=== PATIENT | female | born 1940 | race Caucasian/White ===

== ENCOUNTER 2017-06-10 06:34 | Emergency (ER) | payer OTHER ==
[2017-06-10 07:01] LABS: Urine Blood NEGATIVE (NEG); Urine Glucose TRACE (NEG); Urine Protein 1+ (NEG); Urine Specific Gravity <1.005 (1.005-1.030)
[2017-06-10] MEDS ORDERED: NITROFURAN MACRO 100 MG CAP PO ONE (07:23)
[2017-06-10 07:34] LABS: Urine Bacteria <20 /HPF (<20); Urine Culture Reflex Order NOT NEEDED; Urine RBC <5 /HPF (NONE SEEN)
--- NOTE | 2017-06-10 07:37 | EDPHYS ---
Physician Documentation [facility] Name: Violette Owens Age: 76 yrs Sex: Female : 1940 Arrival Date: 06/10/2017 Time: 06:42 Bed 8 Private MD: ED Physician Gigi Eubanks HPI: 06/10 06:54 This 76 yrs old Female presents to ER via Unassigned with complaints of kb Urinary Problem. 06:54 The patient presents with urinary symptoms, dysuria. Onset: The symptoms/episode kb began/occurred 6 day(s) ago. Modifying factors: The symptoms are alleviated by nothing, the symptoms are aggravated by urinating. Associated signs and symptoms: Pertinent positives: dysuria, Pertinent negatives: constipation, cramping, diarrhea, dyspareunia, fever, hematuria, nausea, urinary frequency, vaginal bleeding, vaginal discharge, vomiting. Severity of symptoms: At their worst the symptoms were mild, moderate, in the emergency department the symptoms are unchanged. The patient has not experienced similar symptoms in the past. The patient has been recently seen at an urgent care, last week, for similar complaints, labs were performed, was given a prescription for antibiotics. Pt states she started having burning with urination on Sunday, went to urgent care on and given Cipro. Received a call yesterday saying the culture was inconclusive so just continue the cipro. Pt reports the cipro was causing decreased appetite and nausea so the person at urgent care told her to just stop it because of the symptoms, but did not give anything else. . Historical: - Allergies: 06:57 No Known Allergies; ak1 - Home Meds: 06:57 Chlorthalidone Oral [Active]; carvedilol oral oral [Active]; Allopurinol Oral [Active]; ak1 Lipitor Oral [Active]; Ambien Oral [Active]; candesartan cilexetil [Active]; Medrol Oral [Active]; - PMHx: 06:57 Hyperlipidemia; Hypertension; ak1 - PSHx: 06:57 Cholecystectomy; Appendectomy; ; Hysterectomy; ak1 - Immunization history:: Adult Immunizations unknown. - Social history:: Smoking status: Patient/guardian denies using tobacco. ROS: 06:54 Constitutional: Negative for fever, chills, and weight loss, Cardiovascular: Negative kb for chest pain, palpitations, and edema, Respiratory: Negative for shortness of breath, cough, wheezing, and pleuritic chest pain, Abdomen/GI: Negative for abdominal pain, nausea, vomiting, diarrhea, and constipation, Back: Negative for injury and pain, MS/Extremity: Negative for injury and deformity, Skin: Negative for injury, rash, and discoloration, Neuro: Negative for headache, weakness, numbness, tingling, and seizure. 06:54 : Positive for urinary symptoms, burning with urination. Exam: 06:54 Constitutional: This is a well developed, well nourished patient who is awake, alert, kb and in no acute distress. Head/Face: Normocephalic, atraumatic. Chest/axilla: Normal chest wall appearance and motion. Nontender with no deformity. No lesions are appreciated. Cardiovascular: Regular rate and rhythm with a normal S1 and S2. No gallops, murmurs, or rubs. Normal PMI, no JVD. No pulse deficits. Respiratory: Lungs have equal breath sounds bilaterally, clear to auscultation and percussion. No rales, rhonchi or wheezes noted. No increased work of breathing, no retractions or nasal flaring. Abdomen/GI: Soft, non-tender, with normal bowel sounds. No distension or tympany. No guarding or rebound. No evidence of tenderness throughout. Skin: Warm, dry with normal turgor. Normal color with no rashes, no lesions, and no evidence of cellulitis. MS/ Extremity: Pulses equal, no cyanosis. Neurovascular intact. Full, normal range of motion. Neuro: Awake and alert, GCS 15, oriented to person, place, time, and situation. Cranial nerves II-XII grossly intact. Motor strength 5/5 in all extremities. Sensory grossly intact. Cerebellar exam normal. Normal gait. Vital Signs: 06:53 BP 190 / 72; Pulse 97; Resp 20; Temp 98.3; Pulse Ox 94% on R/A; Weight 46.72 kg (R); ak1 Height 62 in. (157.48 cm) (R); Pain 6/10; 07:51 BP 175 / 74; Pulse 88; Resp 18; Pulse Ox 96% on R/A; sv 06:53 Body Mass Index 18.84 (46.72 kg, 157.48 cm) ak1 MDM: 06:49 Patient medically screened. kb 06:54 Data reviewed: vital signs, nurses notes. Data interpreted: Pulse oximetry: on room air kb is 94 %. Interpretation: normal. 07:01 Counseling: I had a detailed discussion with the patient and/or guardian regarding: the kb historical points, exam findings, and any diagnostic results supporting the discharge/admit diagnosis, lab results, the need for outpatient follow up, a family practitioner, to return to the emergency department if symptoms worsen or persist or if there are any questions or concerns that arise at home. 06/10 06:53 Order name: Urine Culture 06/10 06:53 Order name: Urine Microscopic Only 06/10 06:56 Order name: Urine Dipstick--Ancillary (enter results) 06/10 06:56 Order name: Urine Culture 06/10 06:56 Order name: Urine Microscopic Only 06/10 07:02 Order name: Urine Dipstick-Ancillary; Complete Time: 07:02 EDMS 06/10 06:53 Order name: Urine Dipstick-Ancillary (obtain specimen); Complete Time: 06:56 kb 06/10 06:56 Order name: Urine Dipstick-Ancillary (obtain specimen); Complete Time: 06:56 06/10 07:34 Order name: Urine Microscopic Only; Complete Time: 07:36 EDMS 06/10 07:36 Order name: Urine Culture EDUT Administered Medications: 07:06 Drug: Macrobid 100 mg Route: PO; sg 07:35 Follow up: Response: No adverse reaction sv Disposition: 19:29 Co-signature as Attending Physician, Gigi Eubanks MD. Disposition: 06/10/17 07:37 Discharged to Home. Impression: Urinary tract infection, site not specified. - Condition is Stable. - Discharge Instructions: Urinary Tract Infection, [id number]. - Prescriptions for Macrobid 100 mg Oral Capsule - take 1 capsule by ORAL route every 12 hours for 7 days; 14 capsule. - Medication Reconciliation Form, Thank You Letter, Antibiotic Education, Prescription Opioid Use form. - Follow up: Emergency Department; When: As needed; Reason: Worsening of condition. Follow up: Private Physician; When: 2 - 3 days; Reason: Recheck today's complaints, Continuance of care, Re-evaluation by your physician. Signatures: Dispatcher [place] Audrey Sharp, MAIL PROCESSOR-C MAIL PROCESSOR-Ckb Tequila Barajas, RN RN Luc Crews, RN RN Flores Padilla, RN RN Sophia Lugo RN RN ak1 Gigi Eubanks MD MD
--- NOTE | 2017-06-10 07:37 | ER ---
Nurse's Notes [facility] Name: Violette Owens Age: 76 yrs Sex: Female : 1940 Arrival Date: 06/10/2017 Time: 06:42 Bed 8 Private MD: Diagnosis: Urinary tract infection, site not specified Presentation: 06/10 06:53 Presenting complaint: Patient states: burning with urination since Sunday. pt seen at [facility] urgent care dx UTI started Cipro 500mg. pt received call from urgent care stating culture was inconclusive. pt asked about cipro making her nauseated. pt was instructed to stop taking cipro. pt taking AZO at this time and continues to have burning with urination. Transition of care: patient was not received from another setting of care. Onset of symptoms is unknown. Care prior to arrival: None. 06:53 Method Of Arrival: Ambulatory [facility] 06:53 Acuity: ORQUIDEA 4 ak Triage Assessment: 06:57 General: Appears in no apparent distress. Behavior is calm, cooperative. [facility] Historical: - Allergies: 06:57 No Known Allergies; ak1 - Home Meds: 06:57 Chlorthalidone Oral [Active]; carvedilol oral oral [Active]; Allopurinol Oral [Active]; ak1 Lipitor Oral [Active]; Ambien Oral [Active]; candesartan cilexetil [Active]; Medrol Oral [Active]; - PMHx: 06:57 Hyperlipidemia; Hypertension; ak1 - PSHx: 06:57 Cholecystectomy; Appendectomy; ; Hysterectomy; ak1 - Immunization history:: Adult Immunizations unknown. - Social history:: Smoking status: Patient/guardian denies using tobacco. Screenin:57 Abuse screen: Denies threats or abuse. Denies injuries from another. Nutritional ak1 screening: No deficits noted. Tuberculosis screening: No symptoms or risk factors identified. Fall Risk None identified. Assessment: 07:06 General: Appears in no apparent distress. uncomfortable, slender, Behavior is calm, sv cooperative, appropriate for age. Pain: Complains of pain in suprapubic area Pain currently is 6 out of 10 on a pain scale. Neuro: Level of Consciousness is awake, alert, obeys commands, Oriented to person, place, time, situation, Moves all extremities. Full function. Respiratory: Respiratory effort is even, unlabored, Respiratory pattern is regular, symmetrical. : Reports burning with urination. Derm: Skin is normal. Musculoskeletal: Range of motion: intact in all extremities. 07:52 Reassessment: Patient appears in no apparent distress at this time. No changes from sv previously documented assessment. Patient and/or family updated on plan of care and expected duration. Pain level reassessed. Patient is alert, oriented x 3, equal unlabored respirations, skin warm/dry/pink. Vital Signs: 06:53 BP 190 / 72; Pulse 97; Resp 20; Temp 98.3; Pulse Ox 94% on R/A; Weight 46.72 kg (R); ak1 Height 62 in. (157.48 cm) (R); Pain 6/10; 07:51 BP 175 / 74; Pulse 88; Resp 18; Pulse Ox 96% on R/A; sv 06:53 Body Mass Index 18.84 (46.72 kg, 157.48 cm) ak1 ED Course: 06:42 Patient arrived in ED. al2 06:49 Audrey Donovan FNP-C is PHCP. kb 06:49 Gigi Eubanks MD is Attending Physician. kb 06:55 Triage completed. ak1 06:57 Arm band placed on Patient placed in an exam room, on a stretcher, on pulse oximetry, ak1 Patient notified of wait time. 06:57 Patient has correct armband on for positive identification. Bed in low position. Call ak1 light in reach. Side rails up X 1. Adult w/ patient. Pulse ox on. NIBP on. 07:06 Luc Wood, JENELLE is Primary Nurse. sg 07:34 Urine Microscopic Only Sent. sv 07:34 Urine Culture Sent. sv 07:34 Urine Culture Sent. sv 07:34 Urine Microscopic Only Sent. sv 07:35 Urine Dipstick--Ancillary (enter results) Sent. sv 07:52 No provider procedures requiring assistance completed. Patient did not have IV access sv during this emergency room visit. Administered Medications: 07:06 Drug: Macrobid 100 mg Route: PO; sg 07:35 Follow up: Response: No adverse reaction sv Outcome: 07:37 Discharge ordered by . kb 07:52 Discharged to home ambulatory, with family. sv 07:52 Condition: stable 07:52 Discharge instructions given to patient, Instructed on discharge instructions, follow up and referral plans. medication usage, increase fluids Demonstrated understanding of instructions, follow-up care, medications, increase fluids Prescriptions given X 1. 07:54 Patient left the ED. sv Signatures: Audrey Donovan, AGRICULTURAL ECONOMIST-C AGRICULTURAL ECONOMIST-Tequila Mora RN RN sv Gay, Steven, RN RN sg Krenek, Amber, RN RN akLakeisha Marrufo
== END 2017-06-10 07:54 | disposition home or self-care (01) ==
LOC: ER 06:34
DX: N39.0 Urinary tract infection, site not specified (principal); I10 Essential (primary) hypertension; E78.5 Hyperlipidemia, unspecified
CPT/HCPCS: 81003; 81015; 87086; 87088; 99284

== ENCOUNTER 2017-06-13 16:27 | Inpatient (IN) | payer OTHER ==
[2017-06-13 18:12] LABS: Urine Blood TRACE (NEG); Urine Glucose NEGATIVE (NEG); Urine Protein NEGATIVE (NEG); Urine pH 5.5 (5.0-7.0)
[2017-06-13] MEDS ORDERED: ONDANSETRON 4 MG/2 ML VIAL ONE (18:19)
[2017-06-13] MEDS ORDERED: NA CHLORIDE 0.9% 1,000 ML ONE (18:21)
[2017-06-13 18:33] LABS: Absolute Lymphocytes (CBC) 1.7 K/uL (0.7-4.9); Absolute Monocytes 1.9 K/uL (0.1-1.3); Absolute Neutrophil 17.6 K/uL (1.8-8.0); Basophils % 0.1 % (0-1.3); Eosinophils % 0.3 % (0-4.4); Hematocrit 34.6 % (36.0-45.0); MCV 95.5 fL (80-100); Monocytes % 8.8 % (3.3-12.3); RBC Red Blood Cell Count 3.62 M/uL (3.86-4.86)
[2017-06-13 18:36] LABS: Urine Bacteria <20 /HPF (<20); Urine Culture Reflex Order REFLEXED; Urine Mucus NS /HPF (NONE SEEN); Urine RBC <5 /HPF (NONE SEEN)
[2017-06-13 18:42] LABS: Albumin 4.5 g/dL (3.2-5.5); Bilirubin Direct 0.1 mg/dL (0-0.2); Bilirubin Total 0.7 mg/dL (0.3-1.2); Protein, Total 6.8 g/dL (6.0-8.3)
[2017-06-13 19:11] LABS: Blood Morphology Comment NOT SEEN (NOT SEEN); Platelet Estimate ADEQ; Toxic Granulation 1+
--- NOTE | 2017-06-13 20:34 | RAD REPORT ---
EXAM DESCRIPTION: CT - Abdomen Pelvis Wo Contrast - 06/13/2017 8:22 pm CLINICAL HISTORY: Abdominal pain. Urinary tract infection. COMPARISON: None TECHNIQUE: CT imaging of the abdomen and pelvis was performed without contrast. Solid organ, bowel a nd vascular assessment is limited due to lack of IV and oral contrast. All CT scans are performed using dose optimization technique as appropriate and may include automated exposure control or mA/KV adjustment according to patient size. FINDINGS: Small vague subpleural opacities are present in the lung bases, incompletely assessed. A s mall hiatal hernia is noted. The liver, spleen, pancreas, adrenal glands and kidneys are within normal limits for a limited non-co ntrast examination.Cholecystectomy clips. No bowel obstruction, free air, free fluid or abscess. Appendectomy suspected. The osseous structures are within normal limits. IMPRESSION: No acute intra-abdominal or pelvic findings. A limited non-contrast examination was performed as detailed.
--- NOTE | 2017-06-13 20:53 | ER ---
Nurse's Notes [facility] Name: Violette Owens Age: 76 yrs Sex: Female : 1940 Arrival Date: 06/13/2017 Time: 16:30 Bed 16 Private MD: Diagnosis: Hypo-osmolality and hyponatremia;Urinary tract infection, site not specified;Dehydration;Acute kidney failure Presentation: 06/13 16:55 Presenting complaint: Patient states: my son brought me here and i was dx with UTI, was hj Rx with cipro, and was changed to another anticiotic because i was nauseous with that, called my PCP, was told to stop taking it and was Rx with Phenergan and Phenergan wasn't helping; had diarrhea last night x2; denies fever and chills;. Transition of care: patient was not received from another setting of care. Onset of symptoms was June 13, 2017. Care prior to arrival: None. 16:55 Method Of Arrival: Ambulatory hj 16:55 Acuity: ORQUIDEA 3 hj Triage Assessment: 17:00 General: Appears in no apparent distress. uncomfortable, Behavior is calm, cooperative, hj appropriate for age. Pain: Denies pain. GI: Reports nausea. Historical: - Allergies: 17:00 No Known Allergies; hj - Home Meds: 17:00 Allopurinol Oral [Active]; Ambien Oral [Active]; candesartan cilexetil [Active]; hj carvedilol Oral [Active]; Chlorthalidone Oral [Active]; Lipitor Oral [Active]; Medrol Oral [Active]; - PMHx: 17:00 Hyperlipidemia; Hypertension; hj - PSHx: 17:00 Cholecystectomy; Appendectomy; ; Hysterectomy; hj - Immunization history:: Adult Immunizations not up to date. - Family history:: not pertinent. - Social history:: Smoking status: Patient/guardian denies using tobacco. - History obtained from: daughter. Screenin:21 Abuse screen: Denies threats or abuse. Denies injuries from another. Nutritional aj1 screening: No deficits noted. Tuberculosis screening: No symptoms or risk factors identified. 22:05 Fall Risk None identified. aj1 Assessment: 17:01 GI: Abdomen is flat, non-distended. hj 17:30 General: Appears in no apparent distress. uncomfortable, Behavior is calm, cooperative, aj1 appropriate for age. Pain: Denies pain. Neuro: Level of Consciousness is awake, alert, obeys commands, Oriented to person, place, time, situation, Speech is normal, Facial symmetry appears normal. Cardiovascular: Patient's skin is warm and dry. Respiratory: Airway is patent Respiratory effort is even, unlabored, Respiratory pattern is regular, symmetrical. GI: Abdomen is flat, non-distended, Bowel sounds present X 4 quads. Abd is soft and non tender X 4 quads. Reports nausea, Patient currently denies diarrhea, vomiting. : No signs and/or symptoms were reported regarding the genitourinary system. EENT: No signs and/or symptoms were reported regarding the EENT system. Derm: No signs and/or symptoms reported regarding the dermatologic system. Skin is pink, warm \T\ dry. normal. Musculoskeletal: No signs and/or symptoms reported regarding the musculoskeletal system. Circulation, motion, and sensation intact. 18:24 Reassessment: Patient appears in no apparent distress at this time. No changes from aj1 previously documented assessment. Patient and/or family updated on plan of care and expected duration. Pain level reassessed. Patient is alert, oriented x 3, equal unlabored respirations, skin warm/dry/pink. 19:30 Reassessment: Patient appears in no apparent distress at this time. No changes from aj1 previously documented assessment. Patient and/or family updated on plan of care and expected duration. Pain level reassessed. Patient is alert, oriented x 3, equal unlabored respirations, skin warm/dry/pink. 20:43 Reassessment: Patient and/or family updated on plan of care and expected duration. Pain aj1 level reassessed. General: Appears in no apparent distress. uncomfortable, Behavior is calm, cooperative, appropriate for age. Pain: Denies pain. Neuro: Level of Consciousness is awake, alert, obeys commands, Oriented to person, place, time, situation, Speech is normal, Facial symmetry appears normal. Cardiovascular: Patient's skin is warm and dry. Respiratory: Airway is patent Respiratory effort is even, unlabored, Respiratory pattern is regular, symmetrical. GI: Abdomen is flat, non-distended, Reports nausea. : No signs and/or symptoms were reported regarding the genitourinary system. EENT: No signs and/or symptoms were reported regarding the EENT system. Derm: Skin is pink, warm \T\ dry. normal. Musculoskeletal: Circulation, motion, and sensation intact. 21:19 Reassessment: Patient appears in no apparent distress at this time. No changes from aj1 previously documented assessment. Patient and/or family updated on plan of care and expected duration. Pain level reassessed. Patient is alert, oriented x 3, equal unlabored respirations, skin warm/dry/pink. 22:12 Reassessment: Patient appears in no apparent distress at this time. No changes from aj1 previously documented assessment. Patient and/or family updated on plan of care and expected duration. Pain level reassessed. Patient is alert, oriented x 3, equal unlabored respirations, skin warm/dry/pink. Vital Signs: 17:01 BP 177 / 69; Pulse 88; Resp 18; Temp 98.1(O); Pulse Ox 100% on R/A; Weight 47.63 kg; hj Height 5 ft. 2 in. (157.48 cm); Pain 0/10; 18:21 BP 187 / 70; Pulse 74; Resp 18; Pulse Ox 96% on R/A; aj1 19:45 BP 193 / 68; Pulse 87; Resp 18; Pulse Ox 96% on R/A; mt 20:34 BP 228 / 66; Pulse 87; Resp 16; Pulse Ox 98% on R/A; mt 21:19 BP 177 / 61; Pulse 81; Resp 18; Pulse Ox 95% ; aj1 22:12 BP 148 / 99; Pulse 79; Resp 18; Pulse Ox 99% ; aj1 17:01 Body Mass Index 19.21 (47.63 kg, 157.48 cm) ED Course: 16:30 Patient arrived in ED. mr 16:59 Triage completed. hj 17:01 Arm band placed on left wrist. hj 17:24 Oxana Castle, JENELLE is Primary Nurse. aj1 17:55 Nu Caceres FNP is PHCP. kav 17:55 Fernando Seals MD is Attending Physician. kav 18:15 No provider procedures requiring assistance completed. Initial lab(s) drawn, by wy, aj1 sent to lab. Inserted saline lock: 20 gauge in left antecubital area, using aseptic technique. Blood collected. 18:21 Patient has correct armband on for positive identification. aj1 20:51 Divinski, Ianir, MD is Hospitalizing Provider. kav 22:12 Patient admitted, IV remains in place. aj1 Administered Medications: 18:19 Drug: Zofran 4 mg Route: IVP; Site: left antecubital; aj1 22:14 Follow up: Response: No adverse reaction aj 18:20 Drug: NS 0.9% 1000 ml Route: IV; Rate: 75 ml/hr; Site: left antecubital; aj1 22:14 Follow up: IV Status: Infusion continued upon admission aj Outcome: 20:53 Decision to Hospitalize by Provider. kav 22:13 Admitted to Med/surg accompanied by tech, via wheelchair, with chart, Report called to faviola Whiting RN on 2nd floor 22:13 Condition: stable 22:13 Discharge instructions given to patient, family, Instructed on the need for admit, Demonstrated understanding of instructions, follow-up care. 22:15 Patient left the ED. aa1 Signatures: Oxana Castle RN RN aj Anamaria Ramsey RN RN aa1 Nu Caceres, WOOD TYPE FINISHER WOOD TYPE FINISHER Pamela España Henry RN RN [facility] Corrections: (The following items were deleted from the chart) 17:02 17:01 Pulse 88bpm; Resp 18bpm; Pulse Ox 100% RA; Temp 98.1F Oral; 47.63 kg; Height 5 hj ft. 2 in.; BMI: 19.2; Pain 0/10; hj 18:24 18:21 General: Appears in no apparent distress. uncomfortable, Behavior is calm, aj1 cooperative, appropriate for age, aj :24 18:21 Pain: Denies pain. aj1 aj :24 18:21 Neuro: Level of Consciousness is awake, alert, obeys commands, Oriented to aj1 person, place, time, situation, Speech is normal, Facial symmetry appears normal, [facility] : 18:21 Cardiovascular: Patient's skin is warm and dry. aj1 aj 18:24 18:21 Respiratory: Airway is patent Respiratory effort is even, unlabored, Respiratory aj pattern is regular, symmetrical, [facility] : 18:21 GI: Abdomen is flat, non-distended, Bowel sounds present X 4 quads. Abd is soft aj1 and non tender X 4 quads. Reports nausea, Patient currently denies diarrhea, vomiting, aj1 :24 18:21 : No signs and/or symptoms were reported regarding the genitourinary system. aj1aj1 18:24 18:21 EENT: No signs and/or symptoms were reported regarding the EENT system. aj1 aj1 18:24 18:21 Derm: No signs and/or symptoms reported regarding the dermatologic system. Skin aj1 is pink, warm \T\ dry. normal, aj1 18:24 18:21 Musculoskeletal: No signs and/or symptoms reported regarding the musculoskeletal aj1 system. Circulation, motion, and sensation intact. aj1 23:04 23:02 Patient left the ED. aa1 aa1
--- NOTE | 2017-06-13 20:54 | EDPHYS ---
Physician Documentation [facility] Name: Violette Owens Age: 76 yrs Sex: Female : 1940 Arrival Date: 06/13/2017 Time: 16:30 Bed 16 Private MD: ED Physician Fernando Seals HPI: 06/13 20:43 This 76 yrs old Female presents to ER via Ambulatory with complaints of kav Nausea. 20:43 The patient presents to the emergency department with nausea, that is moderate. Onset: kav The symptoms/episode began/occurred acutely, 1 week(s) ago, and became worse this morning. Possible causes: antibiotics, uti. The symptoms are aggravated by nothing. The symptoms are alleviated by nothing. Associated signs and symptoms: Pertinent positives: nausea. Severity of symptoms: At their worst the symptoms were moderate just prior to arrival. The patient has experienced a previous episode, approximately 1 weeks ago. The patient has been recently seen by a physician: The patient has been recently seen at the [facility] Emergency Department, last week. patient reports being treated by urgent care for a uti approx 2 weeks ago and give rx: cipro which made her sick to her stomach. she was seen at [facility] ed on 06/10/17 for uti and was taken off of the cipro and placed on macrobid. she reports that the macrobid made her sick and nauseated. she called her pcp/dr. jeff who advised to stop the macrobid and called her in a rx: phenergan. patient presents to the er with chief c/o of nausea. Historical: - Allergies: 17:00 No Known Allergies; - Home Meds: 17:00 Allopurinol Oral [Active]; Ambien Oral [Active]; candesartan cilexetil [Active]; hj carvedilol Oral [Active]; Chlorthalidone Oral [Active]; Lipitor Oral [Active]; Medrol Oral [Active]; - PMHx: 17:00 Hyperlipidemia; Hypertension; hj - PSHx: 17:00 Cholecystectomy; Appendectomy; ; Hysterectomy; hj - Immunization history:: Adult Immunizations not up to date. - Family history:: not pertinent. - Social history:: Smoking status: Patient/guardian denies using tobacco. - History obtained from: daughter. ROS: 20:48 Constitutional: Negative for fever, chills, and weight loss, Eyes: Negative for injury, kav pain, redness, and discharge, ENT: Negative for injury, pain, and discharge, Neck: Negative for injury, pain, and swelling, Cardiovascular: Negative for chest pain, palpitations, and edema, Respiratory: Negative for shortness of breath, cough, wheezing, and pleuritic chest pain, Back: Negative for injury and pain, : Negative for injury, bleeding, discharge, and swelling, MS/Extremity: Negative for injury and deformity, Skin: Negative for injury, rash, and discoloration, Neuro: Negative for headache, weakness, numbness, tingling, and seizure, Psych: Negative for depression, anxiety, suicide ideation, homicidal ideation, and hallucinations, Allergy/Immunology: Negative for hives, rash, and allergies, Endocrine: Negative for neck swelling, polydipsia, polyuria, polyphagia, and marked weight changes, Hematologic/Lymphatic: Negative for swollen nodes, abnormal bleeding, and unusual bruising. 20:48 Abdomen/GI: Positive for nausea, Negative for vomiting, diarrhea, abdominal cramps, abdominal distension, hematemesis, black/tarry stool, rectal bleeding. Exam: 20:48 Constitutional: This is a well developed, well nourished patient who is awake, alert, kav and in no acute distress. Head/Face: Normocephalic, atraumatic. Eyes: Pupils equal round and reactive to light, extra-ocular motions intact. Lids and lashes normal. Conjunctiva and sclera are non-icteric and not injected. Cornea within normal limits. Periorbital areas with no swelling, redness, or edema. ENT: Nares patent. No nasal discharge, no septal abnormalities noted. Tympanic membranes are normal and external auditory canals are clear. Oropharynx with no redness, swelling, or masses, exudates, or evidence of obstruction, uvula midline. Mucous membranes moist. Neck: Trachea midline, no thyromegaly or masses palpated, and no cervical lymphadenopathy. Supple, full range of motion without nuchal rigidity, or vertebral point tenderness. No Meningismus. Chest/axilla: Normal chest wall appearance and motion. Nontender with no deformity. No lesions are appreciated. Cardiovascular: Regular rate and rhythm with a normal S1 and S2. No gallops, murmurs, or rubs. Normal PMI, no JVD. No pulse deficits. Respiratory: Lungs have equal breath sounds bilaterally, clear to auscultation and percussion. No rales, rhonchi or wheezes noted. No increased work of breathing, no retractions or nasal flaring. Back: No spinal tenderness. No costovertebral tenderness. Full range of motion. Skin: Warm, dry with normal turgor. Normal color with no rashes, no lesions, and no evidence of cellulitis. MS/ Extremity: Pulses equal, no cyanosis. Neurovascular intact. Full, normal range of motion. Neuro: Awake and alert, GCS 15, oriented to person, place, time, and situation. Cranial nerves II-XII grossly intact. Motor strength 5/5 in all extremities. Sensory grossly intact. Cerebellar exam normal. Normal gait. Psych: Awake, alert, with orientation to person, place and time. Behavior, mood, and affect are within normal limits. 20:48 Abdomen/GI: Inspection: abdomen appears normal, Bowel sounds: normal, Palpation: abdomen is soft and non-tender, in all quadrants. Vital Signs: 17:01 BP 177 / 69; Pulse 88; Resp 18; Temp 98.1(O); Pulse Ox 100% on R/A; Weight 47.63 kg; hj Height 5 ft. 2 in. (157.48 cm); Pain 0/10; 18:21 BP 187 / 70; Pulse 74; Resp 18; Pulse Ox 96% on R/A; aj1 19:45 BP 193 / 68; Pulse 87; Resp 18; Pulse Ox 96% on R/A; mt 20:34 BP 228 / 66; Pulse 87; Resp 16; Pulse Ox 98% on R/A; mt 21:19 BP 177 / 61; Pulse 81; Resp 18; Pulse Ox 95% ; aj1 22:12 BP 148 / 99; Pulse 79; Resp 18; Pulse Ox 99% ; aj1 17:01 Body Mass Index 19.21 (47.63 kg, 157.48 cm) MDM: 17:55 Patient medically screened. [facility] 20:48 Data reviewed: vital signs, nurses notes, lab test result(s), radiologic studies. [facility] 06/13 17:57 Order name: Amylase, Serum [facility] 06/13 17:57 Order name: Basic Metabolic Panel [facility] 06/13 17:57 Order name: CBC with Diff [facility] 06/13 17:57 Order name: Creatinine for Radiology 06/13 17:57 Order name: Hepatic Function 06/13 17:57 Order name: Lipase [facility] 06/13 17:57 Order name: Urine Microscopic Only [facility] 06/13 18:04 Order name: Urine Dipstick--Ancillary (enter results) ms 06/13 18:12 Order name: Urine Dipstick-Ancillary; Complete Time: 19:31 EDME 06/13 19:31 Interpretation: Normal except: UBLD TRACE; UESTR TRACE. [facility] 06/13 18:35 Order name: Creatinine (Radiology Only); Complete Time: 19:31 EDME 06/13 19:31 Interpretation: Normal except: CRE 1.15; GFR 46. [facility] 06/13 18:36 Order name: Basic Metabolic Panel; Complete Time: 19:31 EDME 06/13 19:32 Interpretation: Normal except: NA 122; CL 89; GLUC 135; BUN 36; CRE 1.14; GFR 47. [facility] 06/13 18:36 Order name: Lipase; Complete Time: 19:32 EDME 06/13 19:32 Interpretation: Normal except: LIP 66. [facility] 06/13 18:36 Order name: CBC with Automated Diff; Complete Time: 19:32 EDME 06/13 19:34 Interpretation: Normal except: WBC 21.3; RBC 3.62; HGB 11.6; ALMAZ% 82.8; LYM% 8.0; NEUT kav A 17.6; MNA 1.9; HCT 34.6. 06/13 18:36 Order name: Urine Microscopic Only; Complete Time: 19:32 EDMS 06/13 19:32 Interpretation: Normal except: UWBC 5-10; SQEPI 5-10. [facility] 06/13 17:57 Order name: IV Saline Lock; Complete Time: 18:20 06/13 17:57 Order name: Labs collected and sent; Complete Time: 18:20 06/13 17:57 Order name: Urine Dipstick-Ancillary (obtain specimen); Complete Time: 18:20 [facility] 06/13 18:43 Order name: Liver (Hepatic) Function; Complete Time: 19:32 EDME 06/13 19:32 Interpretation: Normal except: A/G 2.0. 06/13 18:43 Order name: Amylase Level; Complete Time: 19:32 EDMS 06/13 19:32 Interpretation: Normal except: LOUISE 190. kav 06/13 19:11 Order name: Manual Differential; Complete Time: 19:30 EDMS 06/13 19:30 Interpretation: Normal except: SEGS 83; LYM 8. kav 06/13 19:48 Order name: CT Abd/Pelvis - Without Cont kav 06/13 20:35 Order name: CT; Complete Time: 20:53 EDMS 06/13 20:54 Interpretation: No acute disease. kav Administered Medications: 18:19 Drug: Zofran 4 mg Route: IVP; Site: left antecubital; aj1 22:14 Follow up: Response: No adverse reaction [facility] 18:20 Drug: NS 0.9% 1000 ml Route: IV; Rate: 75 ml/hr; Site: left antecubital; aj1 22:14 Follow up: IV Status: Infusion continued upon admission aj1 Disposition: 06/14 07:18 Co-signature as Attending Physician, Fernando Seals MD I agree with the assessment and kdr plan of care. Disposition: 06/13/17 20:53 Hospitalization ordered by Gracia Francis for Inpatient Admission. Preliminary diagnosis are Hypo-osmolality and hyponatremia, Urinary tract infection, site not specified, Dehydration, Acute kidney failure. - Bed requested for Telemetry/MedSurg (Inpatient). - Status is Inpatient Admission. aa1 - Condition is Fair. - Problem is new. - Symptoms have improved. UTI on Admission? Yes Signatures: Dispatcher [employer] [facility] Oxana Castle RN RN aj1 Reina Hernandez RN RN kl Kern, Alissa, RN RN aa1 Fernando Seals MD MD kdr Vern, Katherine, TIRE BUILDER TIRE BUILDER [facility] Hilario Crews RN RN Corrections: (The following items were deleted from the chart) 06/13 19:32 19:31 Normal except: NA 122; CL 89; GLUC 135; BUN 36; CRE 1.14. kav kav 19:33 19:32 Normal except: WBC 21.3; RBC 3.62; HGB 11.6; HCT 34.6. kav kav 19:34 19:33 Normal except: WBC 21.3; RBC 3.62; HGB 11.6; ALMAZ% 82.8; LYM% 8.0; NEUT A 17.6; kav MNA 1.9. kav
--- NOTE | 2017-06-13 21:53 | P.HP ---
Certification for Inpatient Patient admitted to: Observation With expected LOS: <2 Midnights Practitioner: I am a practitioner with admitting privileges, knowledge of patient current condition, hospital course, and medical plan of care. Services: Services provided to patient in accordance with Admission requirements found in Title 42 Section 412.3 of the Code of Federal Regulations Patient History Date of Service: 06/13/17 Reason for admission: UTI, volume depletion History of Present Illness: Ms Owens is a 76 years old woman with history of HTN and hyperlipidemia, who start about 2 weeks ago with generalized weakness associated with nausea. She was diagnosed with a UTI, prescribed initially Cipro, however the patient did not tolerate it due to nausea and she quit taking it before finish her treatment. Then her PCP change antibiotic for Macrobid, however, still had nausea and it was discontinued after 2 days. The patient came to ED today because her weakness and nausea are getting worse. She denied any fever or chills. In ED lab work remarkable for leukocytosis, 21.3K, hyponatremia 122, mild elevated creatinine 1.14. UA still abnormal consistent with UTI. Abd/ pelvis CT scan is unremarkable. Allergies No Known Aller Allergy (Uncoded 06/10/17 07:57) Unknown - Past Medical/Surgical History -: hyperlypidemia -: HTN -: Cholecystectomy; Appendectomy; ; Hysterectomy - Family History Family History: Reviewed- Non-Contributory - Social History Smoking Status: Never smoker CD- Drugs: No Place of Residence: Home Review of Systems 10-point ROS is otherwise unremarkable Physical Examination - Physical Exam General: Alert, In no apparent distress HEENT: Atraumatic, PERRLA, Other (mucous membr. dry), EOMI, Sclerae nonicteric Neck: Supple, 2+ carotid pulse no bruit, No LAD, Without JVD or thyroid abnormality Respiratory: Clear to auscultation bilaterally, Normal air movement Cardiovascular: Regular rate/rhythm, Normal S1 S2 Gastrointestinal: Normal bowel sounds, No tenderness Musculoskeletal: No tenderness Integumentary: No rashes Neurological: Normal speech, Normal strength at 5/5 x4 extr, Normal tone, Normal affect Lymphatics: No axilla or inguinal lymphadenopathy - Studies Laboratory Data (last 24 hrs) 06/13/17 17:50: Creatinine 1.15 H 06/13/17 17:50: WBC 21.3 H*, Hgb 11.6 L, Hct 34.6 L, Plt Count 338 06/13/17 17:50: Sodium 122 L, Potassium 4.0, BUN 36 H, Creatinine 1.14 H, Glucose 135 H, Total Bilirubin 0.7, AST 22, ALT 25, Alkaline Phosphatase 61, Amylase 190 H, Lipase 66 H Assessment and Plan - Problems (Diagnosis) (1) UTI (urinary tract infection) Current Visit: Yes Status: Acute Qualifiers: Urinary tract infection type: acute cystitis Hematuria presence: without hematuria Qualified Code(s): N30.00 - Acute cystitis without hematuria (2) Hyponatremia Current Visit: Yes Status: Acute (3) Acute renal injury Current Visit: Yes Status: Acute - Plan Ms Owens will be admitted to the hospital due to failure to treat UTI as outpatient, hyponatremia, acute renal injury and volume depletion. Will continue with IV normal saline, IV Levaquin and symptomatic medication for nausea. Previous urine culture were non-conclusive. - Advance Directives Does patient have a Living Will: No Does patient have a Durable POA for Healthcare: No - Code Status/Comfort Care Code Status Assessed: Yes Code Status: Full Code
[2017-06-13] MEDS ORDERED: ACETAMINOPHEN 500 MG TAB PO PRN (22:12)
[2017-06-13] MEDS ORDERED: Levofloxacin500mg IV 500 MG/100 ML BAG IV ONE ×2 (22:12→23:00)
[2017-06-13] MEDS: NA CHLORIDE 0.9% 1,000 ML IV SCH (22:40)
[2017-06-13] MEDS ORDERED: HYDRALAZINE HCL 20 MG/ML VIAL IV PRN (23:13)
[2017-06-14 05:22] LABS: Absolute Lymphocytes (CBC) 1.7 K/uL (0.7-4.9); Absolute Neutrophil 14.1 K/uL (1.8-8.0); Basophils % 0.1 % (0-1.3); Eosinophils % 0.4 % (0-4.4); Hematocrit 30.3 % (36.0-45.0); Lymphocytes % 9.6 % (15.3-44.8); MCH 31.7 pg (27.0-35.0); MCV 93.8 fL (80-100); MPV 8.1 fL (7.6-11.3); Monocytes % 11.3 % (3.3-12.3); RBC Red Blood Cell Count 3.23 M/uL (3.86-4.86)
[2017-06-14 05:45] LABS: Potassium 4.2 mEq/L (3.6-5.0)
[2017-06-14] MEDS ORDERED: INFLUENZA VACCINE (for 5y+) 0.5 ML DOSE IMVAC ONE (08:00)
[2017-06-14] MEDS ORDERED: CARVEDILOL 12.5 MG TAB PO SCH (09:00)
[2017-06-14] MEDS ORDERED: CARVEDILOL 25 MG TAB PO SCH (09:00)
[2017-06-14] MEDS: NA CHLORIDE 0.9% 1,000 ML IV SCH (09:00)
[2017-06-14] MEDS ORDERED: ENOXAPARIN 40 MG/0.4 ML SQ SCH (09:00)
[2017-06-14 15:46] LABS: Absolute Lymphocytes (CBC) 1.8 K/uL (0.7-4.9); Absolute Monocytes 1.7 K/uL (0.1-1.3); Absolute Neutrophil 11.4 K/uL (1.8-8.0); Basophils % 0.1 % (0-1.3); Eosinophils % 0.1 % (0-4.4); Hematocrit 29.4 % (36.0-45.0); Lymphocytes % 11.8 % (15.3-44.8); MCH 31.6 pg (27.0-35.0); MCV 95.5 fL (80-100); Monocytes % 11.6 % (3.3-12.3); RBC Red Blood Cell Count 3.08 M/uL (3.86-4.86)
[2017-06-14 16:08] LABS: Potassium 4.4 mEq/L (3.6-5.0)
--- NOTE | 2017-06-14 16:08 | P.PN ---
Subjective Date of Service: 06/14/17 Chief Complaint: UTI, volume depletion Subjective: Improving (Patient doing well this time. Patient desires to go home.) Physical Examination - Vital Signs Temperature: 97.6 F Blood Pressure: 148/64 Pulse: 82 Respirations: 18 Pulse Ox (%): 94 - Physical Exam General: Alert, In no apparent distress, Oriented x3, Cooperative HEENT: Atraumatic Neck: Supple, No Thyromegaly Respiratory: Clear to auscultation bilaterally, Normal air movement Cardiovascular: Normal pulses, Regular rate/rhythm Gastrointestinal: Normal bowel sounds, Soft and benign, Non-distended, No tenderness, No masses, No rebound, No guarding Musculoskeletal: No erythema, No tenderness, No warmth Integumentary: No tenderness/swelling, No erythema, No warmth, No cyanosis Neurological: Normal speech, Normal strength at 5/5 x4 extr, Normal tone, Normal affect - Studies Laboratory Data (last 24 hrs) 06/13/17 17:50: Creatinine 1.15 H 06/13/17 17:50: WBC 21.3 H*, Hgb 11.6 L, Hct 34.6 L, Plt Count 338 06/13/17 17:50: Sodium 122 L, Potassium 4.0, BUN 36 H, Creatinine 1.14 H, Glucose 135 H, Total Bilirubin 0.7, AST 22, ALT 25, Alkaline Phosphatase 61, Amylase 190 H, Lipase 66 H Medications List Reviewed: Yes Assessment & Plan - Problems (Diagnosis) (1) Hypertension Current Visit: Yes Status: Chronic Plan: Will continue carvedilol. Will hold chlorthalidone and Arb inhibitor. At discharge chlorthalidone likely will need to be discontinued. Will reassess. Qualifiers: Hypertension type: essential hypertension Qualified Code(s): I10 - Essential (primary) hypertension (2) Anemia Current Visit: Yes Status: Chronic Plan: Etiology unknown. This can be further assessed as an outpatient. Patient is getting IV fluids. Patient may require GI evaluation as an outpatient. No rectal bleeding noted. No melena noted. Qualifiers: Anemia type: unspecified type Qualified Code(s): D64.9 - Anemia, unspecified (3) UTI (urinary tract infection) Onset Date: 06/14/17 Current Visit: Yes Status: Acute Plan: Patient recently treated with Cipro and Macrobid. Patient with elevated white count. She has no symptoms at this time. Patient desires to go home. Will recheck lab later today. Will consider discharge. Urine culture obtained. Will reassess later today. Qualifiers: Urinary tract infection type: acute cystitis Hematuria presence: without hematuria Qualified Code(s): N30.00 - Acute cystitis without hematuria (4) Hyponatremia Onset Date: 06/14/17 Current Visit: Yes Status: Acute Plan: This is likely from dehydration. This has improved. Will continue to monitor closely. (5) Acute renal injury Onset Date: 06/14/17 Current Visit: Yes Status: Acute Plan: Continue with above plan of care. Will continue to monitor electrolytes. Will continue with IV fluids. Discharge Plan: Home Plan to discharge in: 24 Hours Time Spent Managing Pts Care (In Minutes): 55
--- NOTE | 2017-06-14 18:32 | P.DS ---
Admission Date: 06/13/17 Discharge Date: 06/14/17 Primary Care Provider: Dr. Sofia Disposition: ROUTINE DISCHARGE Discharge Condition: GOOD Reason for Admission: UTI, volume depletion - Problems (1) Hypertension Status: Chronic Qualifiers: Hypertension type: essential hypertension Qualified Code(s): I10 - Essential (primary) hypertension (2) Anemia Status: Chronic Qualifiers: Anemia type: unspecified type Qualified Code(s): D64.9 - Anemia, unspecified (3) Hyponatremia Onset Date: 06/14/17 Status: Acute (4) Acute renal injury Onset Date: 06/14/17 Status: Acute (5) Gastroenteritis Status: Acute (6) GERD (gastroesophageal reflux disease) Status: Chronic Qualifiers: Esophagitis presence: esophagitis presence not specified Qualified Code(s) : K21.9 - Gastro-esophageal reflux disease without esophagitis Brief History of Present Illness: 76-year-old female presented emergency room with nausea. Patient reports that she has been having nausea and poor appetite over the past 2 weeks. She reports that she felt that she had a UTI in about 2 weeks ago. She was given medication-Cipro. She only took the medication for 3 days as it made her nausea worse. She was then seen again at urgent care for similar symptoms. She was given Macrobid at that time. Patient continued to have increased nausea and vomiting. No significant dysuria was noted. She came to emergency for further evaluation. Upon evaluation the patient was hyponatremic. Urinalysis unremarkable. Patient appeared dry from acute dehydration. The patient was admitted for further evaluation. Hospital Course: During her stay she responded well to IV fluids. CT scan was unremarkable. Urinalysis unremarkable. At discharge she was able to tolerate her diet. No significant nausea, vomiting or abdominal pain was noted. No dysuria was noted. Patient likely had gastroenteritis. Patient still had low sodium but appeared clinically well. She wanted to go home. She understand the risks. Patient is to increase her oral intake at home. She will have lab recheck on Sunday. Patient likely has underlying GERD. She will continue with Nexium daily. Patient may need to see GI as an outpatient to further evaluate. Patient with underlying hypertension. Medications had to be adjusted due to her hyponatremia and acute renal injury. Chlorthalidone was discontinued. At discharge carvedilol was increased to 25 mg 1 pill twice daily. She will continue with Candesartan 32 mg daily. She is to monitor blood pressures daily. Recommendation is to maintain blood pressures less 150/80. She is to hold her medication-Candesartan if blood pressure less than 110 systolic. Further adjustments in medication can be done by her PCP. Patient appeared without any UTI. No antibiotic was given. Education on UTI prevention will be enforced. Vital Signs/Physical Exam: Temp Pulse Resp BP Pulse Ox 97.6 F 82 18 148/64 H 94 06/14/17 16:08 06/14/17 16:08 06/14/17 16:08 06/14/17 16:08 06/14/17 16:08 General: Alert, In no apparent distress, Oriented x3, Cooperative HEENT: Atraumatic, Mucous membr. moist/pink Neck: Supple, No Thyromegaly Respiratory: Clear to auscultation bilaterally, Normal air movement Cardiovascular: Normal pulses, Regular rate/rhythm Gastrointestinal: Normal bowel sounds, Soft and benign, Non-distended, No tenderness, No masses, No rebound, No guarding Musculoskeletal: No erythema, No tenderness, No warmth Integumentary: No tenderness/swelling, No erythema, No warmth, No cyanosis Neurological: Normal speech, Normal strength at 5/5 x4 extr, Normal tone, Normal affect Lymphatics: No axilla or inguinal lymphadenopathy Laboratory Data at Discharge: WBC 14.9 K/uL (4.3-10.9) H D 06/14/17 15:00 Hgb 9.7 g/dL (12.0-15.0) L 06/14/17 15:00 Hct 29.4 % (36.0-45.0) L 06/14/17 15:00 Plt Count 276 K/uL (152-406) 06/14/17 15:00 Sodium 128 mEq/L (135-145) L 06/14/17 15:00 Potassium 4.4 mEq/L (3.6-5.0) 06/14/17 15:00 BUN 23 mg/dL (6-20) H 06/14/17 15:00 Creatinine 1.05 mg/dL (0.44-1.00) H 06/14/17 15:00 Glucose 112 mg/dL (65-120) 06/14/17 15:00 Total Bilirubin 0.7 mg/dL (0.3-1.2) 06/13/17 17:50 AST 22 IU/L (10-42) 06/13/17 17:50 ALT 25 IU/L (10-60) 06/13/17 17:50 Alkaline Phosphatase 61 IU/L (42-121) 06/13/17 17:50 Amylase 133 U/L (28-100) H 06/14/17 15:00 Lipase 51 U/L (22-51) 06/14/17 15:00 Home Medications: Allopurinol 1 tab PO DAILY 06/13/17 Candesartan Cilexetil 32 mg PO DAILY 06/13/17 Zolpidem Tartrate [Ambien] 1 tab PO BEDTIME 06/13/17 Carvedilol [Coreg*] 25 mg PO BID #60 tab 06/14/17 Esomeprazole Mag Trihydrate [Nexium] 40 mg PO DAILY #30 capsule. 06/14/17 New Medications: Carvedilol [Coreg*] 25 mg PO BID #60 tab Esomeprazole Mag Trihydrate [Nexium] 40 mg PO DAILY #30 capsule. Patient Discharge Instructions: 1. Patient will need to follow up with a PCP in 1 week to follow up this hospitalization. 2. Patient presented with nausea. CT scan unremarkable. Patient found to be dehydrated. At discharge she was able tolerate her diet. No nausea vomiting or abdominal pain is noted. No dysuria was noted. Patient likely had gastroenteritis. She will continue to increase her oral intake. She will continue with Nexium daily. 3. Patient has hypertension. Medications have been adjusted. Carvedilol will be increased to 25 mg 1 pill twice daily. Chlorthalidone has been discontinued. Candesartan 32 mg daily will be continued. She is to monitor blood pressures daily. Recommendation is to maintain blood pressures less 150/80. She is to hold her medication-Candesartan if blood pressure less than 110 systolic. Further adjustments in medication can be done by her PCP. 4. Education on UTI prevention will be enforced. Diet: AHA Activity: Fall precautions Time spent managing pt's care (in minutes): 55
[2017-06-14] MEDS ORDERED: ZOLPIDEM TARTRATE 10 MG TABLET PO SCH (21:00)
[2017-06-14] MEDS ORDERED: Levofloxacin 250mg IV 250 MG/50 ML BAG IV SCH (21:00)
== END 2017-06-14 18:00 | disposition home or self-care (01) | DRG 683 ==
LOC: ER 16:27 → ERHOLD 21:11 → 2ND 21:50
PROVIDERS: ADMIT Internal Medicine; ATTEND Family Medicine
DX: N17.9 Acute kidney failure, unspecified (principal); N39.0 Urinary tract infection, site not specified; E87.1 Hypo-osmolality and hyponatremia; E86.9 Volume depletion, unspecified; D64.9 Anemia, unspecified; I10 Essential (primary) hypertension; K52.9 Noninfective gastroenteritis and colitis, unspecified
CPT/HCPCS: 36415; 74176; 80048; 80076; 81003; 81015; 82150; 83690; 85025; 87086; 87088; 96361; 96374; 99284; 99285; J0360; J1650; J2405; J7030

== ENCOUNTER 2017-06-16 15:25 | Inpatient (IN) | payer OTHER ==
[2017-06-16] MEDS ORDERED: NA CHLORIDE 0.9% 1,000 ML ONE (16:37)
[2017-06-16 16:39] LABS: Protime INR 1.01
[2017-06-16 16:44] LABS: Absolute Lymphocytes (CBC) 1.1 K/uL (0.7-4.9); Absolute Monocytes 1.6 K/uL (0.1-1.3); Absolute Neutrophil 9.4 K/uL (1.8-8.0); Basophils % 0.3 % (0-1.3); Eosinophils % 0.7 % (0-4.4); Lymphocytes % 9.1 % (15.3-44.8); MCH 30.9 pg (27.0-35.0); MCV 96.6 fL (80-100); MPV 8.2 fL (7.6-11.3); Monocytes % 13.2 % (3.3-12.3)
[2017-06-16 16:47] LABS: Potassium 3.7 mEq/L (3.6-5.0)
[2017-06-16 16:48] LABS: Urine Blood TRACE (NEG); Urine Glucose NEGATIVE (NEG); Urine Protein NEGATIVE (NEG)
[2017-06-16] MEDS ORDERED: ONDANSETRON 4 MG/2 ML VIAL ONE (16:49)
[2017-06-16 16:53] LABS: Albumin 3.9 g/dL (3.2-5.5); Bilirubin Direct 0.1 mg/dL (0-0.2); Bilirubin Total 0.6 mg/dL (0.3-1.2); Magnesium 1.7 mg/dL (1.8-2.5); Protein, Total 6.3 g/dL (6.0-8.3)
--- NOTE | 2017-06-16 17:00 | RAD REPORT ---
EXAM DESCRIPTION: Stut Single View06/16/2017 4:39 pm CLINICAL HISTORY: cough COMPARISON: 2011 FINDINGS: The lungs appear clear of acute infiltrate. The heart is normal size. Biapical pleural ca lcifications are unchanged IMPRESSION: No acute abnormalities displayed
[2017-06-16 17:06] LABS: CKMB Creatine Kinase MB 12.4 ng/ml (0.3-4.0)
--- NOTE | 2017-06-16 17:40 | EDPHYS ---
Physician Documentation [facility] Name: Violette Owens Age: 76 yrs Sex: Female : 1940 Arrival Date: 06/16/2017 Time: 15:26 Bed 25 Private MD: Luis Sofia T ED Physician Murali Fuentes HPI: 06/16 16:15 This 76 yrs old Female presents to ER via Ambulatory with complaints of Blood gregoria Pressure Problem, Nausea. 16:15 The patient presents to the emergency department with nausea, vomiting. Onset: The gregoria symptoms/episode began/occurred 1 week(s) ago. Possible causes: unknown. The symptoms are aggravated by nothing. The symptoms are alleviated by nothing. Associated signs and symptoms: The patient has no apparent associated signs or symptoms. Historical: - Allergies: 15:38 No Known Allergies; hb - Home Meds: 15:38 Allopurinol Oral [Active]; Ambien Oral [Active]; candesartan cilexetil [Active]; hb Chlorthalidone Oral [Active]; Lipitor Oral [Active]; Medrol Oral [Active]; carvedilol Oral [Active]; - PMHx: 15:38 Hyperlipidemia; Hypertension; hb - PSHx: 15:38 Cholecystectomy; Appendectomy; ; Hysterectomy; hb - Immunization history:: Adult Immunizations up to date. - Social history:: Smoking status: Patient/guardian denies using tobacco. ROS: 16:16 Constitutional: Negative for fever, chills, and weight loss, Eyes: Negative for injury, gregoria pain, redness, and discharge, ENT: Negative for injury, pain, and discharge, Neck: Negative for injury, pain, and swelling, Cardiovascular: Negative for chest pain, palpitations, and edema, Respiratory: Negative for shortness of breath, cough, wheezing, and pleuritic chest pain, Back: Negative for injury and pain, : Negative for injury, bleeding, discharge, and swelling, MS/Extremity: Negative for injury and deformity, Neuro: Negative for headache, weakness, numbness, tingling, and seizure, Psych: Negative for depression, anxiety, suicide ideation, homicidal ideation, and hallucinations, Allergy/Immunology: Negative for hives, rash, and allergies, Endocrine: Negative for neck swelling, polydipsia, polyuria, polyphagia, and marked weight changes, Hematologic/Lymphatic: Negative for swollen nodes, abnormal bleeding, and unusual bruising. 16:16 Abdomen/GI: Positive for nausea. 16:16 Neuro: Positive for dizziness, weakness. Exam: 16:16 Constitutional: This is a well developed, well nourished patient who is awake, alert, gregoria and in no acute distress. Head/Face: Normocephalic, atraumatic. Eyes: Pupils equal round and reactive to light, extra-ocular motions intact. Lids and lashes normal. Conjunctiva and sclera are non-icteric and not injected. Cornea within normal limits. Periorbital areas with no swelling, redness, or edema. ENT: Nares patent. No nasal discharge, no septal abnormalities noted. Tympanic membranes are normal and external auditory canals are clear. Oropharynx with no redness, swelling, or masses, exudates, or evidence of obstruction, uvula midline. Mucous membranes moist. Neck: Trachea midline, no thyromegaly or masses palpated, and no cervical lymphadenopathy. Supple, full range of motion without nuchal rigidity, or vertebral point tenderness. No Meningismus. Chest/axilla: Normal chest wall appearance and motion. Nontender with no deformity. No lesions are appreciated. Cardiovascular: Regular rate and rhythm with a normal S1 and S2. No gallops, murmurs, or rubs. Normal PMI, no JVD. No pulse deficits. Respiratory: Lungs have equal breath sounds bilaterally, clear to auscultation and percussion. No rales, rhonchi or wheezes noted. No increased work of breathing, no retractions or nasal flaring. Abdomen/GI: Soft, non-tender, with normal bowel sounds. No distension or tympany. No guarding or rebound. No evidence of tenderness throughout. Back: No spinal tenderness. No costovertebral tenderness. Full range of motion. Female : Normal external genitalia. MS/ Extremity: Pulses equal, no cyanosis. Neurovascular intact. Full, normal range of motion. Neuro: Awake and alert, GCS 15, oriented to person, place, time, and situation. Cranial nerves II-XII grossly intact. Motor strength 5/5 in all extremities. Sensory grossly intact. Cerebellar exam normal. Normal gait. Psych: Awake, alert, with orientation to person, place and time. Behavior, mood, and affect are within normal limits. 16:16 Skin: Appearance: Color: pale, Temperature: normal temperature, Moisture: normal moisture, petechiae, not noted, ecchymosis, not noted. Vital Signs: 15:38 BP 137 / 45; Pulse 69; Resp 16; Temp 97.6; Pulse Ox 100% on R/A; Weight 47.63 kg; hb Height 5 ft. 2 in. (157.48 cm); Pain 0/10; 16:50 BP 164 / 56; Pulse 70; Resp 16; Pulse Ox 95% on R/A; dh3 18:49 BP 169 / 50; Pulse 68; Resp 19; Pulse Ox 99% on R/A; kr2 19:45 BP 142 / 61; Pulse 71; Resp 19; Temp 98; Pulse Ox 98% on R/A; kr2 15:38 Body Mass Index 19.21 (47.63 kg, 157.48 cm) hb MDM: 15:53 Patient medically screened. [facility] 16:18 Data reviewed: vital signs, nurses notes, lab test result(s), EKG, radiologic studies, [facility] plain films. 06/16 16:15 Order name: Basic Metabolic Panel [facility] 06/16 16:15 Order name: BNP [facility] 06/16 16:15 Order name: CBC with Diff [facility] 06/16 16:15 Order name: Ckmb [facility] 06/16 16:15 Order name: CPK [facility] 06/16 16:15 Order name: LFT's [facility] 06/16 16:15 Order name: Magnesium [facility] 06/16 16:15 Order name: PT-INR [facility] 06/16 16:15 Order name: Ptt, Activated [facility] 06/16 16:15 Order name: Troponin (emerg Dept Use Only) [facility] 06/16 16:15 Order name: Lipase [facility] 06/16 16:15 Order name: Urine Culture [facility] 06/16 16:39 Order name: Urine Dipstick--Ancillary (enter results) 06/16 16:41 Order name: Protime (+INR); Complete Time: 17:32 [facility]VT 06/16 16:15 Order name: XRAY Chest (1 view) [facility] 06/16 16:41 Order name: PTT, Activated Partial Thromb; Complete Time: 17:32 ED[facility] 06/16 16:46 Order name: CBC with Automated Diff; Complete Time: 17:32 ED[facility] 06/16 16:48 Order name: Urine Dipstick-Ancillary; Complete Time: 17:32 [facility] 06/16 16:52 Order name: Troponin (Emerg Dept Use Only); Complete Time: 17:32 [facility] 06/16 16:53 Order name: Basic Metabolic Panel; Complete Time: 17:32 [facility] 06/16 16:53 Order name: Lipase; Complete Time: 17:32 [facility] 06/16 16:53 Order name: Liver (Hepatic) Function; Complete Time: 17:32 [facility] 06/16 16:53 Order name: Creatine Phosphokinase; Complete Time: 17:32 [facility] 06/16 16:53 Order name: Magnesium; Complete Time: 17:32 [facility] 06/16 16:56 Order name: BNP B-Type Natriuretic Peptide; Complete Time: 17:32 [facility] 06/16 17:01 Order name: RAD; Complete Time: 17:32 [facility] 06/16 17:06 Order name: CKMB Creatine Kinase MB; Complete Time: 17:32 [facility] 06/16 17:33 Order name: Type And Screen [facility] 06/16 19:09 Order name: Type and Screen [facility] 06/16 16:15 Order name: EKG; Complete Time: 16:16 [facility] 06/16 16:15 Order name: Cardiac monitoring; Complete Time: 16:49 [facility] 06/16 16:15 Order name: EKG - Nurse/Tech; Complete Time: 16:48 [facility] 06/16 16:15 Order name: IV Saline Lock; Complete Time: 16:28 [facility] 06/16 16:15 Order name: Labs collected and sent; Complete Time: 16:28 [facility] 06/16 16:15 Order name: O2 Per Protocol; Complete Time: 16:28 [facility] 06/16 16:15 Order name: O2 Sat Monitoring; Complete Time: 16:28 [facility] 06/16 16:15 Order name: Urine Dipstick-Ancillary (obtain specimen); Complete Time: 16:28 gregoria Administered Medications: 16:28 Drug: NS 0.9% 500 ml Route: IV; Rate: bolus; Site: left antecubital; kr2 17:02 Follow up: Response: No adverse reaction; IV Status: Completed infusion kr2 16:32 Drug: Zofran 4 mg Route: IVP; Site: left antecubital; kr2 17:03 Follow up: Response: No adverse reaction; Nausea is decreased kr2 17:03 Drug: NS 0.9% 1000 ml Route: IV; Rate: 125 ml/hr; Site: left antecubital; kr2 18:50 Follow up: Response: No adverse reaction; IV Status: Infusion continued upon admission kr2 17:45 Drug: Magnesium Sulfate 1 grams Route: IVPB; Infused Over: 1 hrs; Site: left kr2 antecubital; 18:50 Follow up: Response: No adverse reaction; IV Status: Completed infusion kr2 17:52 Drug: ProTONIX 40 mg Route: IVP; Site: left antecubital; kr2 18:50 Follow up: Response: No adverse reaction kr2 Disposition: 06/16/17 17:39 Hospitalization ordered by Keshav Roberts for Observation. Preliminary diagnosis are Hypotension, Weakness, Hypomagnesemia, Hypo-osmolality and hyponatremia, Anemia, unspecified. - Bed requested for Telemetry/MedSurg (observation). - Status is Observation. kr2 - Condition is Fair. - Problem is new. - Symptoms have improved. UTI on Admission? Yes Signatures: Dispatcher [employer] EDVT Murali Fuentes MD MD cha Baxter, Heather, RN RN Kimmy Woodard, Vanita Narayan RN, RN RN kr2
--- NOTE | 2017-06-16 17:40 | ER ---
Nurse's Notes [facility] Name: Violette Owens Age: 76 yrs Sex: Female : 1940 Arrival Date: 06/16/2017 Time: 15:26 Bed 25 Private MD: Luis Sofia T Diagnosis: Hypotension;Weakness;Hypomagnesemia;Hypo-osmolality and hyponatremia;Anemia, unspecified Presentation: 06/16 15:36 Presenting complaint: Patient states: I have nausea and don't feel right, my blood hb pressure at home has been low, today it was 113/50. Recently seen in ED for same s/s. Transition of care: patient was not received from another setting of care. Onset of symptoms is unknown. Care prior to arrival: Medication(s) given: Phenergan, at 0800 today. 15:36 Method Of Arrival: Ambulatory hb 15:36 Acuity: ORQUIDEA 3 hb Triage Assessment: 16:45 General: Appears in no apparent distress. comfortable, slender, well groomed, well kr2 developed, well nourished, Behavior is calm, cooperative, appropriate for age. 17:08 GI: Reports nausea. kr2 Historical: - Allergies: 15:38 No Known Allergies; hb - Home Meds: 15:38 Allopurinol Oral [Active]; Ambien Oral [Active]; candesartan cilexetil [Active]; hb Chlorthalidone Oral [Active]; Lipitor Oral [Active]; Medrol Oral [Active]; carvedilol Oral [Active]; - PMHx: 15:38 Hyperlipidemia; Hypertension; hb - PSHx: 15:38 Cholecystectomy; Appendectomy; ; Hysterectomy; hb - Immunization history:: Adult Immunizations up to date. - Social history:: Smoking status: Patient/guardian denies using tobacco. Screenin:07 Abuse screen: Denies threats or abuse. Denies injuries from another. Nutritional kr2 screening: No deficits noted. Tuberculosis screening: No symptoms or risk factors identified. Fall Risk None identified. Assessment: 16:50 General: Appears in no apparent distress. comfortable, slender, well groomed, well kr2 developed, well nourished, Behavior is calm, cooperative, appropriate for age. Pain: Denies pain. Neuro: Level of Consciousness is awake, alert, obeys commands, Oriented to person, place, time, situation, Appropriate for age. Cardiovascular: Capillary refill < 3 seconds in bilateral fingers Patient's skin is warm and dry. Cardiovascular: Reports fatigue, lightheadedness, nausea. Respiratory: Airway is patent Respiratory effort is even, unlabored, Respiratory pattern is regular, symmetrical. GI: Abdomen is flat, non-distended. : No signs and/or symptoms were reported regarding the genitourinary system. Denies burning with urination. EENT: Nares are clear bilaterally Oral mucosa is moist. Derm: Skin is intact, is healthy with good turgor, Skin is dry, Skin is pale, Skin temperature is warm. Musculoskeletal: Circulation, motion, and sensation intact. 17:45 Reassessment: Patient appears in no apparent distress at this time. Patient and/or kr2 family updated on plan of care and expected duration. Pain level reassessed. Patient is alert, oriented x 3, equal unlabored respirations, skin warm/dry/pink. Patient denies pain at this time. 18:49 Reassessment: Patient appears in no apparent distress at this time. Patient and/or kr2 family updated on plan of care and expected duration. Pain level reassessed. Patient is alert, oriented x 3, equal unlabored respirations, skin warm/dry/pink. Patient denies pain at this time. 19:39 Reassessment: Patient appears in no apparent distress at this time. Patient and/or kr2 family updated on plan of care and expected duration. Pain level reassessed. Patient is alert, oriented x 3, equal unlabored respirations, skin warm/dry/pink. Report called to receiving nurse Paul Stockton. Patient denies pain at this time. Vital Signs: 15:38 BP 137 / 45; Pulse 69; Resp 16; Temp 97.6; Pulse Ox 100% on R/A; Weight 47.63 kg; hb Height 5 ft. 2 in. (157.48 cm); Pain 0/10; 16:50 BP 164 / 56; Pulse 70; Resp 16; Pulse Ox 95% on R/A; dh3 18:49 BP 169 / 50; Pulse 68; Resp 19; Pulse Ox 99% on R/A; kr2 19:45 BP 142 / 61; Pulse 71; Resp 19; Temp 98; Pulse Ox 98% on R/A; kr2 15:38 Body Mass Index 19.21 (47.63 kg, 157.48 cm) hb ED Course: 15:26 Patient arrived in ED. as 15:27 Luis Sofia MD is Private Physician. as 15:38 Triage completed. hb 15:38 Arm band placed on right wrist. hb 15:53 Murali Fuentes MD is Attending Physician. gregoria 15:54 Vanita Trinh, JENELLE is Primary Nurse. kr2 16:27 Initial lab(s) drawn, by me, sent to lab. Urine collected: clean catch specimen, clear. dh3 Inserted saline lock: 22 gauge in left antecubital area, using aseptic technique. Blood collected. 16:36 X-ray completed. Portable x-ray completed in exam room. Patient tolerated procedure la2 well. 16:45 Patient has correct armband on for positive identification. Bed in low position. Call kr2 light in reach. Side rails up X2. physical therapy supervisor on. Pulse ox on. NIBP on. Door closed. Warm blanket given. Head of bed elevated. 16:47 EKG done, by ED staff, reviewed by Murali Fuentes MD. dh3 17:38 Michelle Ramirez MD is Hospitalizing Provider. gregoria 17:47 Keshav Roberts DO is Hospitalizing Provider. gregoria 18:08 T\T\S collected, blood band applied to patient. dh3 19:45 No provider procedures requiring assistance completed. Patient admitted, IV remains in kr2 place. Administered Medications: 16:28 Drug: NS 0.9% 500 ml Route: IV; Rate: bolus; Site: left antecubital; kr2 17:02 Follow up: Response: No adverse reaction; IV Status: Completed infusion kr2 16:32 Drug: Zofran 4 mg Route: IVP; Site: left antecubital; kr2 17:03 Follow up: Response: No adverse reaction; Nausea is decreased kr2 17:03 Drug: NS 0.9% 1000 ml Route: IV; Rate: 125 ml/hr; Site: left antecubital; kr2 18:50 Follow up: Response: No adverse reaction; IV Status: Infusion continued upon admission kr2 17:45 Drug: Magnesium Sulfate 1 grams Route: IVPB; Infused Over: 1 hrs; Site: left kr2 antecubital; 18:50 Follow up: Response: No adverse reaction; IV Status: Completed infusion kr2 17:52 Drug: ProTONIX 40 mg Route: IVP; Site: left antecubital; kr2 18:50 Follow up: Response: No adverse reaction kr2 Outcome: 17:39 Decision to Hospitalize by Provider. gregoria 19:45 Admitted to Tele accompanied by tech, family with patient, via wheelchair, room 405, kr2 with chart, Report called to Paul Denise 19:45 Condition: good 19:45 Instructed on the need for admit, Demonstrated understanding of instructions. 19:49 Patient left the ED. kr2 Signatures: Murali Fuentes MD MD cha Martinez, Amelia as Baxter, Heather, RN RN Devi Cespedes 3 Yi Romero Vanita Trinh, JENELLE RN kr2 Corrections: (The following items were deleted from the chart) 15:39 15:38 BP 137 / ???; Pulse 45bpm; Resp 72bpm; Pulse Ox 100% RA; Temp 16F; 47.63 kg; hb Height 5 ft. 2 in.; BMI: 19.2; Pain 0/10; hb 15:39 15:38 BP 137 / 45; Pulse 69bpm; Resp 16bpm; Pulse Ox 100% RA; Temp 16F; 47.63 kg; hb Height 5 ft. 2 in.; BMI: 19.2; Pain 0/10; hb
[2017-06-16] MEDS ORDERED: MAGNESIUM SULFATE 1 gm IVPB 1 GM/100 ML BAG IV ONE (17:56)
[2017-06-16] MEDS ORDERED: PANTOPRAZOLE 40 MG INJ ONE (18:04)
[2017-06-16] MEDS ORDERED: ONDANSETRON 4 MG/2 ML VIAL IV PRN (18:21)
--- NOTE | 2017-06-16 18:36 | P.HP ---
Certification for Inpatient Patient admitted to: Observation With expected LOS: <2 Midnights Patient will require the following post-hospital care: None Practitioner: I am a practitioner with admitting privileges, knowledge of patient current condition, hospital course, and medical plan of care. Services: Services provided to patient in accordance with Admission requirements found in Title 42 Section 412.3 of the Code of Federal Regulations Patient History Date of Service: 06/16/17 Primary Care Provider: Dr. Sofia Reason for admission: Nausea, fatigue History of Present Illness: 76-year-old female presented to the ER with nausea and fatigue. Patient was recently hospitalized for nausea an fatigue. Upon her initial presentation on the last hospitalization she came in with hypernatremia, nausea. CT scan showed no acute abnormality. Patient was given IV fluids. Patient had been taking chlorthalidone, Candasartan, carvedilol for hypertension. Medications were adjusted. Upon discharge the patient was supposed to stop her chlorthalidone. She reports that she has been taking this since her last admission. Since that time she has been having nausea and feeling tired. Her carvedilol was increased on the last visit. She may have been taking all 3 medications with a higher dose of carvedilol. It appears she was confused with the instructions. The patient presented again today with nausea, fatigue. No significant chest pain, shortness of breath noted. She denied any diarrhea or constipation. The friend is at bedside. Allergies No Known Allergies Allergy (Verified 06/13/17 22:40) Home medications list reviewed: Yes Home Medications: Allopurinol 1 tab PO DAILY 06/13/17 Candesartan Cilexetil 32 mg PO DAILY 06/13/17 Zolpidem Tartrate [Ambien] 1 tab PO BEDTIME 06/13/17 Carvedilol [Coreg*] 25 mg PO BID #60 tab 06/14/17 Esomeprazole Mag Trihydrate [Nexium] 40 mg PO DAILY #30 capsule. 06/14/17 - Past Medical/Surgical History Diabetic: No -: Hyperlipidemia -: HTN -: Gout -: Insomnia -: GERD -: Cholecystectomy -: Appendectomy -: -: Hysterectomy Psychosocial/ Personal History: The patient lives at home. - Family History Family History: Reviewed- Non-Contributory - Social History Smoking Status: Never smoker Alcohol use: No CD- Drugs: No Caffeine use: Yes Place of Residence: Home Review of Systems General: Weakness, Malaise, As per HPI Eyes: Unremarkable ENT: Unremarkable Respiratory: Unremarkable Cardiovascular: Unremarkable Gastrointestinal: Nausea, As per HPI Genitourinary: Unremarkable Musculoskeletal: Unremarkable Integumentary: Unremarkable Neurological: Weakness, As per HPI Lymphatics: Unremarkable Physical Examination - Physical Exam General: Alert, In no apparent distress, Oriented x3, Cooperative HEENT: Atraumatic, Normocephalic, PERRLA, Mucous membr. moist/pink Neck: Supple, No Thyromegaly Respiratory: Clear to auscultation bilaterally, Normal air movement Cardiovascular: Normal pulses, Regular rate/rhythm Gastrointestinal: Normal bowel sounds, Soft and benign, Non-distended, No ascites, No tenderness, No masses, No rebound, No guarding Musculoskeletal: No erythema, No tenderness, No warmth Integumentary: No tenderness/swelling, No erythema, No warmth, No cyanosis, Other (Dry skin) Neurological: Normal speech, Normal strength at 5/5 x4 extr, Normal tone, Normal affect Lymphatics: No axilla or inguinal lymphadenopathy - Studies Laboratory Data (last 24 hrs) 06/16/17 16:22: PT 11.9, INR 1.01, APTT 25.4 06/16/17 16:22: WBC 12.3 H D, Hgb 9.3 L, Hct 29.0 L, Plt Count 234 06/16/17 16:22: B-Natriuretic Peptide 57 06/16/17 16:22: Sodium 128 L, Potassium 3.7, BUN 21 H, Creatinine 1.05 H, Glucose 121 H, Magnesium 1.7 L, Total Bilirubin 0.6, AST 36, ALT 29, Alkaline Phosphatase 62, Lipase 64 H Assessment and Plan - Problems (Diagnosis) (1) Chronic renal disease Current Visit: Yes Status: Suspected Plan: Patient may have underlying chronic renal disease versus acute renal injury related to medication. Will check abdominal ultrasound to assess. Will continue with IV fluids. Will stop chlorthalidone and Arb inhibitor. Will reassess tomorrow after patient receives IV fluids. Qualifiers: Chronic kidney disease stage: stage 2 (mild) Qualified Code(s): N18.2 - Chronic kidney disease, stage 2 (mild) (2) Nausea Current Visit: Yes Status: Acute Plan: This may be related to medication. Will stop chlorthalidone and Arb inhibitor. Will continue with IV fluids. Patient may have underlying GERD as well. Will provide medication. (3) Acute renal injury Onset Date: 06/14/17 Current Visit: No Status: Acute Plan: This may be related to medication. Will stop chlorthalidone and Arb inhibitor. Will continue with IV fluids. (4) Hyponatremia Onset Date: 06/14/17 Current Visit: No Status: Acute Plan: This is likely from medication. Will continue with IV fluids. Will discontinue chlorthalidone and Arb inhibitor. Will reassess tomorrow. (5) Anemia Current Visit: No Status: Chronic Plan: This is likely of chronic disease. Will check iron levels. Qualifiers: Anemia type: unspecified type Qualified Code(s): D64.9 - Anemia, unspecified (6) GERD (gastroesophageal reflux disease) Current Visit: No Status: Chronic Plan: Will continue with PPI. Patient will likely need to see GI as an outpatient to further evaluate. Will check abdominal ultrasound. Qualifiers: Esophagitis presence: esophagitis presence not specified Qualified Code(s) : K21.9 - Gastro-esophageal reflux disease without esophagitis (7) Hypertension Current Visit: No Status: Chronic Plan: I will discontinue chlorthalidone and Arb inhibitor. Will continue with carvedilol. Will need to instruct on specific instructions about medications. Patient had been told to stop her chlorthalidone. Her carvedilol was increased when last discharge. She apparently been taking all 3 medications again. Will reassess. Qualifiers: Hypertension type: essential hypertension Qualified Code(s): I10 - Essential (primary) hypertension Discharge Plan: Home Plan to discharge in: 24 Hours - Advance Directives Does patient have a Living Will: No Does patient have a Durable POA for Healthcare: No - Code Status/Comfort Care Code Status Assessed: Yes Time Spent Managing Pts Care (In Minutes): 55
[2017-06-16] MEDS: NA CHLORIDE 0.9% 1,000 ML IV SCH (20:40)
[2017-06-16] MEDS: ENOXAPARIN 40 MG/0.4 ML SQ SCH (21:21)
[2017-06-16] MEDS: CARVEDILOL 6.25 MG TAB PO SCH (21:22)
[2017-06-16] MEDS: ATORVASTATIN 10 MG TAB PO SCH (21:22)
[2017-06-16] MEDS: FAMOTIDINE 20 MG TAB PO SCH (21:23)
[2017-06-16] MEDS: ZOLPIDEM TARTRATE 5 MG TABLET PO PRN (22:00)
[2017-06-17] MEDS: NA CHLORIDE 0.9% 1,000 ML IV SCH ×3 (05:00→15:22)
--- NOTE | 2017-06-17 05:14 | EKG ---
Test Date: 2017-06-16 Test Time: 16:37:17 [employer] Games Supervisor: CAMILLE MEASUREMENT RESULTS: Intervals: Rate: 65 HI: 140 QRSD: 86 QT: 420 QTc: 436 [place]: P: 49 HI: 140 QRS: 53 T: 55 INTERPRETIVE STATEMENTS: Normal sinus rhythm Normal ECG Compared to ECG 05/12/1996 08:39:00 No significant changes Electronically Signed On 06-17-17 05:13:50 CDT by Rell Del Real
[2017-06-17 05:53] LABS: Absolute Lymphocytes (CBC) 1.3 K/uL (0.7-4.9); Absolute Neutrophil 6.3 K/uL (1.8-8.0); Basophils % 0.5 % (0-1.3); Hematocrit 24.8 % (36.0-45.0); Lymphocytes % 14.5 % (15.3-44.8); MCH 31.7 pg (27.0-35.0); MCV 96.3 fL (80-100); Monocytes % 11.2 % (3.3-12.3); RBC Red Blood Cell Count 2.58 M/uL (3.86-4.86)
[2017-06-17] MEDS ORDERED: INFLUENZA VACCINE (for 5y+) 0.5 ML DOSE IMVAC ONE (08:00)
[2017-06-17] MEDS: ENOXAPARIN 40 MG/0.4 ML SQ SCH (09:19)
[2017-06-17] MEDS: CARVEDILOL 6.25 MG TAB PO SCH ×2 (09:20→20:59)
[2017-06-17] MEDS: FAMOTIDINE 20 MG TAB PO SCH ×2 (09:20→20:59)
--- NOTE | 2017-06-17 10:41 | RAD REPORT ---
EXAM DESCRIPTION: US - Abdomen Exam Complete - 06/17/2017 9:38 am CLINICAL HISTORY: Nausea, abdominal pain, acute kidney injury COMPARISON: CT June 13 FINDINGS: Gallbladder is absent. Common bile duct is normal with no common duct stone identified. Th e liver and spleen show no suspicious findings. Liver and spleen are normal size. Liver is 18 cm in m aximum dimension with the spleen 10 cm. The prominent right lobe of the liver is believed to be randal l variant Jose's lobe. The pancreas is normal. No hydronephrosis or suspicious mass in either kidney. Cortical thickness is normal. There is a sligh t increase in cortical echogenicity which is nonspecific but probably reflects a mild medical renal d isease. Aorta is normal is size. No ascites or bulky lymphadenopathy. Aortic atherosclerotic calcifications a re present. IMPRESSION: No hydronephrosis or suspicious renal mass. Increased renal echogenicity is nonspecific but may reflect a mild medical renal disease. Status post cholecystectomy. No biliary tree dilatation.
[2017-06-17 11:15] LABS: Albumin 2.7 g/dL (3.2-5.5); Bilirubin Total 0.2 mg/dL (0.3-1.2); Magnesium 1.7 mg/dL (1.8-2.5); Potassium 3.9 mEq/L (3.6-5.0); Protein, Total 4.4 g/dL (6.0-8.3)
--- NOTE | 2017-06-17 13:55 | CON ---
Date of Consultation: 06/17/2017 Additional Consulting Physician: Dr. Roberts. Reason For Consultation: Electrolyte imbalance, hyponatremia. History Of Present Illness: This is a pleasant 76-year-old female with significant past medical hist ory of hypertension, insomnia, the patient was recently admitted to the hospital with nausea, vomitin g, fatigue. At that time, found to have hyponatremia, corrected on IV fluid last week and discharge, instructed not to take her chlorthalidone, but apparently patient persists on the chlorthalidone and the candesartan. The patient gradually started feeling weak again and her blood pressure started go ing down. For that reason, the patient reported to the hospital. The patient in the hospital found to have elevated blood pressure on presentation and her sodium was down again to 128, started on IV f luid, sodium up to 132. Reviewing the record for the patient, the patient harping on sodium 122 on l ast admission, it trended up to 128 when she was discharged, then she was readmitted with 128, trende d up to 132 on admission. There is persistent some alkalosis on both admission. Her urinalysis show ing a specific gravity on previous admission of 1.0005, currently her specific gravity of 1.010. She has a +1 of protein. Otherwise, no other condition. Reviewing the record also, we did not have any TSH and cortisol. The patient denied taking any nonsteroidal, no IV contrast. No other changes in her medication. Her kidney function being stable around 1.01 with GFR around 50. Social History: Denies smoking, denies drinking, denies drug abuse. Past Medical History: Include; 1.Hypertension. 2.Hyperlipidemia. 3.Insomnia. 4.Chronic kidney disease. Allergies: NO KNOWN DRUG ALLERGIES. Home Medications: Include; 1.Allopurinol. 2.Candesartan. 3.Ambien. 4.Carvedilol. 5.Omeprazole. Family History: Positive for hypertension. Review of Systems: Head and Neck: Generalized fatigue. Endocrine: No polydipsia. Skin: No rash. Neurologic: Generalized weakness. Musculoskeletal: Generalized fatigue. GI: Decreased intake. : No polyuria. No dysuria. No hematuria. 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 Cardiovascular: No chest pain. Respiratory: No cough. Physical Examination: Vital Signs: When I saw the patient, blood pressure 132/47, pulse of 77, afebrile. As I mentioned o n admission, her blood pressure was normal. Chest: Clear to auscultation. Heart: S1, S2. Regular. Abdomen: Soft, nontender. Extremities: No edema. Laboratory Data: Sodium 132, potassium 3.9, bicarb 21, BUN 20, creatinine 1.07, GFR of 50, calcium 7 .9. TSAT is pending. Magnesium 1.7. Cortisol and TSH sent, is still pending. Urinalysis; specific gravity of 1.010, +1 protein. Current Medications: In the hospital include IV fluid of normal saline, Lovenox, atorvastatin, carve dilol 6.25, Ambien, Pepcid, and normal saline at 100 per hour. Assessment And Plan: 1.Hyponatremia secondary to depletion or poor intake, superimposed with chlorthalidone, collecting t ube diuretic. I agree with holding chlorthalidone, agree with the hydration. We will send for corti courtney, TSH, and we will send for urine electrolytes for further evaluation. We will continue hydrating the patient and we will follow up. 2.Hypertension, currently controlled, optimal. Continue holding the candesartan and chlorthalidone for the time being and we will follow up. 3.Chronic kidney disease, stage III, stable, on baseline. We will monitor. 4.Proteinuria. I am going to go ahead and send for protein-creatinine to quantify it. Case discussed with Dr. Roberts, agreed on the plan. YOON Voice ID: [id number] Report ID: [id number]
[2017-06-17] MEDS ORDERED: KCL 20 MEQ/100 mL IVPB 20 MEQ/100 ML BAG IV SCH (14:00)
[2017-06-17] MEDS ORDERED: MAGNESIUM SULFATE 1 gm IVPB 1 GM/100 ML BAG IV ONE ×2 (14:00→16:00)
--- NOTE | 2017-06-17 14:03 | P.PN ---
Subjective Date of Service: 06/17/17 Primary Care Provider: Dr. Sofia Chief Complaint: Nausea, fatigue Subjective: Improving Physical Examination - Vital Signs Temperature: 98.3 F Blood Pressure: 147/63 Pulse: 71 Respirations: 16 Pulse Ox (%): 95 - Physical Exam General: Alert, In no apparent distress, Oriented x3, Cooperative HEENT: Atraumatic, Mucous membr. moist/pink Neck: Supple Respiratory: Clear to auscultation bilaterally, Normal air movement Cardiovascular: Normal pulses, Regular rate/rhythm Gastrointestinal: Normal bowel sounds, Soft and benign, Non-distended, No tenderness, No masses, No rebound, No guarding Musculoskeletal: No erythema, No tenderness, No warmth Integumentary: No tenderness/swelling, No erythema, No warmth, No cyanosis Neurological: Normal speech, Normal strength at 5/5 x4 extr, Normal tone, Normal affect - Studies Laboratory Data (last 24 hrs) 06/16/17 16:22: PT 11.9, INR 1.01, APTT 25.4 06/16/17 16:22: WBC 12.3 H D, Hgb 9.3 L, Hct 29.0 L, Plt Count 234 06/16/17 16:22: B-Natriuretic Peptide 57 06/16/17 16:22: Sodium 128 L, Potassium 3.7, BUN 21 H, Creatinine 1.05 H, Glucose 121 H, Magnesium 1.7 L, Total Bilirubin 0.6, AST 36, ALT 29, Alkaline Phosphatase 62, Lipase 64 H Medications List Reviewed: Yes Assessment & Plan - Problems (Diagnosis) (1) Chronic renal disease Current Visit: Yes Status: Suspected Plan: Ultrasound shows chronic renal disease. Patient off chlorthalidone and Arb inhibitor. Hyponatremia improved. Patient with protein urea. Nephrology consulted to further assess. Renal workup in progress. Recheck lab tomorrow. Likely home tomorrow if okay with nephrology. Patient slightly anemic. Will obtain iron and B12 levels. Patient has seen GI in the past. Patient will need a follow up with GI-Dr. Chatman as an outpatient. I will turn the service over to Dr. Hernandez tomorrow. I will go over the plan of care with him. Qualifiers: Chronic kidney disease stage: stage 3 (moderate) Qualified Code(s): N18.3 - Chronic kidney disease, stage 3 (moderate) (2) Nausea Current Visit: Yes Status: Acute Plan: This may be related to medication. This has improved. Chlorthalidone and Arb inhibitor currently on hold. Will continue with IV fluids. Patient may have underlying GERD as well. Will provide medication. (3) Acute renal injury Onset Date: 06/14/17 Current Visit: No Status: Acute Plan: This has improved with IV hydration. Chlorthalidone and Arb inhibitor has been discontinued. Will continue with nephrology recommendation. Likely discharge tomorrow. (4) Hyponatremia Onset Date: 06/14/17 Current Visit: No Status: Acute Plan: This has improved with IV fluids. Chlorthalidone an Arb inhibitor discontinued. (5) Anemia Current Visit: No Status: Chronic Plan: This is likely of chronic disease. Will check iron levels. Patient seen by GI- Dr. Chatman in the past. Last EGD done 2-3 years ago. Will monitor closely. Patient without any melena, rectal bleeding, hematemesis. Qualifiers: Anemia type: unspecified type Qualified Code(s): D64.9 - Anemia, unspecified (6) GERD (gastroesophageal reflux disease) Current Visit: No Status: Chronic Plan: Will continue with PPI. Patient will likely need to see GI as an outpatient to further evaluate. Qualifiers: Esophagitis presence: esophagitis presence not specified Qualified Code(s) : K21.9 - Gastro-esophageal reflux disease without esophagitis (7) Hypertension Current Visit: No Status: Chronic Plan: Will continue with carvedilol. Chlorthalidone and Arb inhibitor have been discontinued. Carvedilol may need to be adjusted for better control. Qualifiers: Hypertension type: essential hypertension Qualified Code(s): I10 - Essential (primary) hypertension Discharge Plan: Home Plan to discharge in: 24 Hours Time Spent Managing Pts Care (In Minutes): 55
[2017-06-17 15:14] LABS: UR CREAT 23.4 mg/dL
[2017-06-17 15:22] LABS: UR PROTEIN < 6 mg/dl (< 10); Urine Protein/Creatinine Ratio ND (<0.15)
[2017-06-17 15:32] LABS: UR SODIUM 70 mEq/L (27-287)
[2017-06-17 15:35] LABS: UR PROTEIN < 6 mg/dl (< 10)
[2017-06-17] MEDS: ATORVASTATIN 10 MG TAB PO SCH (20:59)
[2017-06-17] MEDS: ACETAMINOPHEN 500 MG TAB PO PRN (21:03)
[2017-06-17] MEDS: ZOLPIDEM TARTRATE 5 MG TABLET PO PRN (21:57)
[2017-06-18 03:55] LABS: Absolute Lymphocytes (CBC) 1.3 K/uL (0.7-4.9); Absolute Monocytes 0.9 K/uL (0.1-1.3); Absolute Neutrophil 4.3 K/uL (1.8-8.0); Basophils % 0.4 % (0-1.3); Eosinophils % 1.2 % (0-4.4); Hematocrit 24.1 % (36.0-45.0); Lymphocytes % 19.2 % (15.3-44.8); MCH 31.9 pg (27.0-35.0); MCV 94.7 fL (80-100); MPV 7.9 fL (7.6-11.3); Monocytes % 14.3 % (3.3-12.3); RBC Red Blood Cell Count 2.54 M/uL (3.86-4.86)
[2017-06-18 04:25] LABS: Thyroid Stimulating Hormone 1.44 uIU/mL (0.34-5.60)
[2017-06-18 04:29] LABS: Albumin 3.1 g/dL (3.2-5.5); Bilirubin Total 0.3 mg/dL (0.3-1.2); Magnesium 1.9 mg/dL (1.8-2.5); Phosphorus 2.1 mg/dL (2.5-4.3); Potassium 4.4 mEq/L (3.6-5.0); Protein, Total 5.2 g/dL (6.0-8.3)
[2017-06-18] MEDS: NA CHLORIDE 0.9% 1,000 ML IV SCH (04:40)
[2017-06-18 05:25] LABS: Urine Appearance CLEAR; Urine Bilirubin NEGATIVE (NEG); Urine Blood NEGATIVE (NEG); Urine Color YELLOW; Urine Glucose NEGATIVE (NEG); Urine Protein NEGATIVE (NEG); Urine Specific Gravity <=1.005 (1.005-1.030); Urine Urobilinogen 0.2 mg/dL (0.2-1.0); Urine pH 6.5 (5.0-7.0)
[2017-06-18] MEDS: ACETAMINOPHEN 500 MG TAB PO PRN (05:36)
[2017-06-18 05:45] LABS: Urine Microscopic Reflex NO UMIC
[2017-06-18] MEDS: ENOXAPARIN 40 MG/0.4 ML SQ SCH (09:00)
[2017-06-18] MEDS: CARVEDILOL 6.25 MG TAB PO SCH (09:09)
[2017-06-18] MEDS: FAMOTIDINE 20 MG TAB PO SCH (09:09)
--- NOTE | 2017-06-18 15:57 | P.DS ---
Admission Date: 06/16/17 Discharge Date: 06/18/17 Primary Care Provider: Dr. Sofia Disposition: ROUTINE DISCHARGE Discharge Condition: FAIR Reason for Admission: Nausea, fatigue - Problems (1) Acute renal injury Onset Date: 06/14/17 Status: Resolved (2) Hyponatremia Onset Date: 06/14/17 Status: Resolved (3) GERD (gastroesophageal reflux disease) Onset Date: 06/18/17 Status: Chronic Qualifiers: Esophagitis presence: esophagitis presence not specified Qualified Code(s) : K21.9 - Gastro-esophageal reflux disease without esophagitis (4) Hypertension Onset Date: 06/18/17 Status: Chronic Qualifiers: Hypertension type: essential hypertension Qualified Code(s): I10 - Essential (primary) hypertension (5) Chronic renal disease Onset Date: 06/18/17 Status: Suspected Qualifiers: Chronic kidney disease stage: stage 3 (moderate) Qualified Code(s): N18.3 - Chronic kidney disease, stage 3 (moderate) Brief History of Present Illness: 76-year-old female presented to the ER with nausea and fatigue. Patient was recently hospitalized for nausea an fatigue. Upon her initial presentation on the last hospitalization she came in with hypernatremia, nausea. CT scan showed no acute abnormality. Patient was given IV fluids. Patient had been taking chlorthalidone, Candasartan, carvedilol for hypertension. Medications were adjusted. Upon discharge the patient was supposed to stop her chlorthalidone. She reports that she has been taking this since her last admission. Since that time she has been having nausea and feeling tired. Her carvedilol was increased on the last visit. She may have been taking all 3 medications with a higher dose of carvedilol. It appears she was confused with the instructions. The patient presented again today with nausea, fatigue. No significant chest pain, shortness of breath noted. She denied any diarrhea or constipation. The friend is at bedside. Hospital Course: The patient with admitted hospital. The patient blood pressure has been low and Coreg was reduced to 6.25 mg p.o. b.i.d.. Patient also have anemia due to iron deficiency and she was start on oral iron replacement. The patient renal function has been improved after IV hydration. The patient developed no other complications and she is discharged home in stable condition with adjustment of medications Vital Signs/Physical Exam: Temp Pulse Resp BP Pulse Ox 98.8 F 71 16 159/65 H 93 06/18/17 12:00 06/18/17 12:00 06/18/17 12:00 06/18/17 12:00 06/18/17 12:00 General: Alert, In no apparent distress HEENT: Atraumatic, PERRLA, EOMI Neck: Supple, JVD not distended Respiratory: Clear to auscultation bilaterally, Normal air movement Cardiovascular: Regular rate/rhythm, Normal S1 S2 Gastrointestinal: Normal bowel sounds, No tenderness Musculoskeletal: No tenderness Integumentary: No rashes Neurological: Normal speech, Normal tone, Normal affect Lymphatics: No axilla or inguinal lymphadenopathy Laboratory Data at Discharge: WBC 6.6 K/uL (4.3-10.9) D 06/18/17 03:43 Hgb 8.1 g/dL (12.0-15.0) L 06/18/17 03:43 Hct 24.1 % (36.0-45.0) L 06/18/17 03:43 Plt Count 170 K/uL (152-406) 06/18/17 03:43 PT 11.9 SECONDS (9.5-12.5) 06/16/17 16:22 INR 1.01 06/16/17 16:22 APTT 25.4 SECONDS (24.3-36.9) 06/16/17 16:22 Sodium 135 mEq/L (135-145) 06/18/17 03:43 Potassium 4.4 mEq/L (3.6-5.0) 06/18/17 03:43 BUN 14 mg/dL (6-20) 06/18/17 03:43 Creatinine 0.87 mg/dL (0.44-1.00) 06/18/17 03:43 Glucose 104 mg/dL (65-120) 06/18/17 03:43 Phosphorus 2.1 mg/dL (2.5-4.3) L 06/18/17 03:43 Magnesium 1.9 mg/dL (1.8-2.5) 06/18/17 03:43 Total Bilirubin 0.3 mg/dL (0.3-1.2) 06/18/17 03:43 AST 22 IU/L (10-42) 06/18/17 03:43 ALT 26 IU/L (10-60) 06/18/17 03:43 Alkaline Phosphatase 46 IU/L (42-121) 06/18/17 03:43 B-Natriuretic Peptide 57 pg/ml (<=100) 06/16/17 16:22 Amylase 86 U/L (28-100) 06/17/17 05:38 Lipase 52 U/L (22-51) H 06/17/17 05:38 Home Medications: Allopurinol 1 tab PO DAILY 06/13/17 Candesartan Cilexetil 32 mg PO DAILY 06/13/17 Zolpidem Tartrate [Ambien] 1 tab PO BEDTIME 06/13/17 Atorvastatin Calcium [Lipitor*] 10 mg PO BEDTIME #30 tab 06/18/17 Carvedilol [Coreg*] 6.25 mg PO BID #60 tab 06/18/17 Famotidine [Pepcid*] 20 mg PO BID #60 tab 06/18/17 Ferrous Sulfate [Feosol] 325 mg PO TID #90 tablet 06/18/17 Magnesium Oxide [Mag 0X*] 400 mg PO BID #60 tab 06/18/17 New Medications: Atorvastatin Calcium [Lipitor*] 10 mg PO BEDTIME #30 tab Carvedilol [Coreg*] 6.25 mg PO BID #60 tab Famotidine [Pepcid*] 20 mg PO BID #60 tab Ferrous Sulfate [Feosol] 325 mg PO TID #90 tablet Magnesium Oxide [Mag 0X*] 400 mg PO BID #60 tab Diet: Regular Activity: Ad june Followup: Luis Sofia MD [Primary Care Provider] - Time spent managing pt's care (in minutes): 35
--- NOTE | 2017-06-19 01:35 | PN ---
Date of Progress Note: 06/18/2017 Chief Complaint: Hyponatremia hypo-osmolar, electrolytes imbalance. History Of Present Illness: The patient presented to the hospital because of nausea, vomiting, fatigue. She has history of insomnia, hypertension. She was treated with angiotensin receptor derek and HCTZ. The patient was found to have hyponatremia. Sodium level was 128. The patient was started on IV fluids and sodium level improved gradually to 132. Previous admission was for severe hyponatremia. The patient has history of proteinuria. She was found to have 1+ protein on screen test. The patient has history of hyperuricemia and gout and has been treated with allopurinol. Review of Systems: Denies fever, chills. Denies nausea, vomiting, melena, hematemesis. Physical Examination: Lungs: Clear to auscultation bilaterally. Heart: S1, S2. Abdomen: Soft, benign. Extremities: No edema. Labs: Sodium 132, potassium 3.9, bicarbonate 21, BUN 20, creatinine 1.07, calcium 7.9, magnesium 1.7. TSH and cortisol level pending. Urinalysis showed 1+ protein. Impression And Plan: 1. Hyponatremia secondary to hypovolemia due to poor appetite with effect of medication. The patient was taken off HCTZ. The patient cannot take HCTZ due to risk of severe hyponatremia. 2. Hypertension. Blood pressure in acceptable control. Continue to hold angiotensin receptor derek in view of some prerenal azotemia. Continue IV fluids with normal saline. 3. Proteinuria. The patient will have workup for proteinuria, 1+ protein on screen test correspond with mild to moderate proteinuria. The patient may need further workup in outpatient setting. 4. Today sodium level improved to 135, it has been a gradual improvement of hyponatremia since June 16. Sodium level was 128, on June 17 132, and on June 18 135. Continue p.o. fluid restriction and continue to monitor electrolytes. The patient was instructed to follow up in outpatient setting. 5. Hypomagnesemia, Magnesium level has improved from 1.7 to 1.9. Hypomagnesemia resolved. I spent total 36 min including 26 min to coordinate care plan. SHANTI/FLOR Voice ID: [id number] Report ID: [id number] AZUL
== END 2017-06-18 12:23 | disposition home or self-care (01) | DRG 683 ==
LOC: ER 15:25 → ERHOLD 17:41 → 4TH 19:40
PROVIDERS: ADMIT Family Medicine; ATTEND Family Medicine
DX: N17.9 Acute kidney failure, unspecified (principal); E87.1 Hypo-osmolality and hyponatremia; E78.5 Hyperlipidemia, unspecified; E83.42 Hypomagnesemia; E86.1 Hypovolemia; I10 Essential (primary) hypertension; M10.9 Gout, unspecified; F51.09 Other insomnia not due to a substance or known physiological condition; K21.9 Gastro-esophageal reflux disease without esophagitis; I12.9 Hypertensive chronic kidney disease with stage 1 through stage 4 chronic kidney disease, or unspecified chronic kidney disease; N18.3 Chronic kidney disease, stage 3 (moderate); D50.9 Iron deficiency anemia, unspecified
CPT/HCPCS: 36415; 71045; 76700; 80048; 80053; 80069; 80076; 81003; 82150; 82533; 82550; 82553; 82570; 82607; 82728; 83540; 83690; 83735; 83880; 83930; 83935; 84132; 84156; 84300; 84439; 84443; 84466; 84484; 85025; 85610; 85730; 86850; 86900; 86901; 87086; 87088; 93005; 96361; 96365; 96375; 99285; C9113; J1650; J2405; J3475; J7030

== ENCOUNTER 2020-05-29 14:08 | Inpatient (IN) | payer OTHER ==
[2020-05-29] MEDS ORDERED: THIAMINE 200 MG/2 ML INJ ONE (15:59)
[2020-05-29] MEDS ORDERED: HYDROCORTISONE SUC 100 MG INJ ONE (15:59)
--- NOTE | 2020-05-29 15:59 | RAD REPORT ---
EXAM DESCRIPTION: CT - Head Brain Wo Cont - 05/29/2020 3:32 pm CLINICAL HISTORY: Dizziness;Headache;Mental status change COMPARISON: Head Brain W/Wo Con dated 07/26/2017 TECHNIQUE: Axial 5 mm thick images of the head were obtained without IV contrast. All CT scans are performed using dose optimization technique as appropriate and may include automated exposure control or mA/KV adjustment according to patient size. FINDINGS: No intracranial hemorrhage, mass, edema or shift of mid-line structures. No acute cortical based infarction. No cortical edema or sulcal effacement. Atrophy and chronic ischemic pattern match es the 2018 study. Ventricles are in proportion. Mastoid air cells and visualized portions of the paranasal sinuses are clear. No acute bony findings. IMPRESSION: No hemorrhage present and no acute cortical infarction. Atrophy and chronic ischemic changes are present matching comparison.
[2020-05-29] MEDS ORDERED: FAMOTIDINE 20 MG/2 ML VIAL IV ONE (16:00)
[2020-05-29] MEDS ORDERED: NA CHLORIDE 0.9% 1,000 ML ONE ×2 (16:00→20:14)
[2020-05-29] MEDS ORDERED: CEFTRIAXONE/SWI 1gm 1 GM/10 ML SYR ONE (16:00)
[2020-05-29] MEDS ORDERED: NA CHLORIDE 0.9% 500 ML ONE (16:00)
--- NOTE | 2020-05-29 16:15 | RAD REPORT ---
EXAM DESCRIPTION: RAD - Chest Single View - 05/29/2020 4:09 pm CLINICAL HISTORY: COUGH COMPARISON: Two view chest May 06 TECHNIQUE: AP portable chest image was obtained 05/29/2020 4:09 pm . FINDINGS: No peripheral mass or consolidations seen. Lung volumes are quite low compared the prior s tudy. Retrocardiac left base assessment is limited. No definitive failure or volume overload findings . Extent of chronic lung disease could mask early edema or infiltrate. Heart size is upper normal, accentuated in shallow inspiration. No vascular engorgement. No measurab le pleural effusion and no pneumothorax. No acute bony abnormality seen. No acute aortic findings elva pected. IMPRESSION: Chronic interstitial lung disease accentuated by significantly shadow lung volume. This could mask early edema or infiltrate.
[2020-05-29 16:26] LABS: Absolute Lymphocytes (CBC) 0.9 K/uL (0.7-4.9); Basophils % 0.2 % (0-1.3); Hematocrit 29.5 % (36.0-45.0); Lymphocytes % 2.4 % (15.3-44.8); MPV 9.5 fL (7.6-11.3); Protime INR 1.11; RBC Red Blood Cell Count 3.21 M/uL (3.86-4.86)
--- NOTE | 2020-05-29 16:58 | ER ---
Nurse's Notes [facility] Name: Violette Owens Age: 79 yrs Sex: Female : 1940 Arrival Date: 05/29/2020 Time: 14:15 Bed 4 Private MD: Luis Sofia T Diagnosis: Altered mental status, unspecified;Dyspnea;Elevated white blood cell count;Acute tubulo-interstitial nephritis-RIGHT PYELONEPHRITIS;Unspecified kidney failure-INSUFFICENCY;Hyperglycemia, unspecified;Anemia, unspecified Presentation: 05/29 14:32 Chief complaint: Patient's son or daughter states: had been coughing a lot lately, was iw prescribed an inhaler and steroid by Dr. Sofia, she has not been making sense and not acting herself since last Sunday, pt appears pale, weak. Coronavirus screen: cough unrelated to allergies, Client presents with at least one sign or symptom that may indicate coronavirus-19. Standard/surgical mask placed on the client. Provider contacted for isolation considerations. Ebola Screen: Patient negative for fever greater than or equal to 101.5 degrees Fahrenheit, and additional compatible Ebola Virus Disease symptoms Patient denies exposure to infectious person. Patient denies travel to an Ebola-affected area in the 21 days before illness onset. No symptoms or risks identified at this time. Initial Sepsis Screen: Does the patient meet any 2 criteria? No. Patient's initial sepsis screen is negative. Does the patient have a suspected source of infection? No. Patient's initial sepsis screen is negative. Risk Assessment: Do you want to hurt yourself or someone else? Patient reports no desire to harm self or others. Onset of symptoms was May 24, 2020. 14:32 Method Of Arrival: Ambulatory iw 14:32 Acuity: ORQUIDEA 2 iw Triage Assessment: 14:45 General: Appears in no apparent distress. comfortable, slender, Behavior is drowsy. bp Pain: Denies pain. EENT: No deficits noted. Neuro: Level of Consciousness is obeys commands, confused, Oriented to person. Cardiovascular: No deficits noted. Respiratory: No deficits noted. GI: No signs and/or symptoms were reported involving the gastrointestinal system. : No signs and/or symptoms were reported regarding the genitourinary system. Derm: No deficits noted. Musculoskeletal: No deficits noted. Historical: - Allergies: 14:35 No Known Allergies; iw - PMHx: 14:35 Hyperlipidemia; Hypertension; iw - PSHx: 14:35 Cholecystectomy; Appendectomy; ; Hysterectomy; iw - Immunization history:: Adult Immunizations not up to date. - Social history:: Smoking status: Patient denies any tobacco usage or history of. - Family history:: not pertinent. Screenin:04 Abuse screen: Denies threats or abuse. Denies injuries from another. Nutritional bp screening: No deficits noted. Tuberculosis screening: No symptoms or risk factors identified. Fall Risk None identified. Assessment: 15:04 General: SEE TRIAGE NOTE. bp 16:00 Reassessment: No changes from previously documented assessment. Patient and/or family bp updated on plan of care and expected duration. Pain level reassessed. Patient is alert, oriented x 3, equal unlabored respirations, skin warm/dry/pink. Neuro: Level of Consciousness is awake, alert, obeys commands, Oriented to Appropriate for age. 17:00 Reassessment: Patient and/or family updated on plan of care and expected duration. Pain jd3 level reassessed. Patient is alert, oriented x 3, equal unlabored respirations, skin warm/dry/pink. 18:00 Reassessment: Patient and/or family updated on plan of care and expected duration. Pain jd3 level reassessed. Patient is alert, oriented x 3, equal unlabored respirations, skin warm/dry/pink. awaiting admission. 19:54 General: Appears in no apparent distress. Behavior is appropriate for age. Pain: Denies ea pain. Neuro: Level of Consciousness is awake, alert, obeys commands, Oriented to person, place. Respiratory: Airway is patent Respiratory effort is even, unlabored, Respiratory pattern is regular, symmetrical. Derm: Skin is dry, Skin is pale, Skin temperature is warm. Vital Signs: 14:32 BP 92 / 41; Pulse 71; Resp 16; Temp 97.1; Pulse Ox 100% on R/A; Weight 44.45 kg; iw 15:30 BP 123 / 102; Pulse 71; Resp 16; Pulse Ox 100% ; bp 16:00 BP 129 / 105; Pulse 72; Resp 17; Pulse Ox 100% ; bp 20:03 BP 133 / 77; Pulse 68; Resp 18; Pulse Ox 98% on R/A; ea ED Course: 14:15 Patient arrived in ED. am2 14:15 Luis Sofia MD is Private Physician. am2 14:35 Triage completed. iw 14:35 Arm band placed on. iw 14:40 Murali Fuentes MD is Attending Physician. gregoria 15:01 Pérez Page, JENELLE is Primary Nurse. bp 15:05 Patient has correct armband on for positive identification. Bed in low position. Call bp light in reach. Side rails up X2. 15:31 CT Head Brain wo Cont In Process Unspecified. EDMS 15:50 Inserted saline lock: 20 gauge in left antecubital area, using aseptic technique. Blood jd3 collected. 16:09 XRAY Chest (1 view) In Process Unspecified. EDMS 16:57 Foster Lyons MD is Hospitalizing Provider. gregoria 17:17 CT Chest Abdomen Pelvis W/O Contrast: no iv , no oral In Process Unspecified. EDMS 18:18 Urine Culture Sent. ca1 19:26 Abdomen Limited US: Please eval Pancreas/kidneys In Process Unspecified. EDMS Administered Medications: 15:45 Drug: NS 0.9% 500 ml Route: IV; Rate: bolus; Site: left antecubital; bp 20:19 Follow up: Response: No adverse reaction; IV Status: Completed infusion; IV Intake: ea 500ml 15:45 Drug: NS 0.9% 1000 ml Route: IV; Rate: 125 ml/hr; Site: left antecubital; bp 15:45 Drug: Pepcid 20 mg Route: IVP; Site: left antecubital; bp 20:19 Follow up: Response: No adverse reaction ea 15:45 Drug: Thiamine 100 mg Route: IV; Rate: bolus; Site: left antecubital; bp 20:19 Follow up: IV Status: Completed infusion ea 15:45 Drug: Rocephin 1 grams Route: IV; Rate: per protocol; Site: left antecubital; bp 20:19 Follow up: IV Status: Completed infusion ea 15:45 Drug: Solu-CORTEF 100 mg Route: IVP; Site: left antecubital; bp 16:10 Follow up: Response: No adverse reaction bp 20:02 Drug: NS 0.9% 1000 ml Route: IV; Rate: 1 bolus; Site: left antecubital; ea 20:02 Drug: levofloxacin 500 mg Volume: 100 ml; Route: IVPB; Infused Over: 60 mins; Site: ea left antecubital; Intake: 20:19 IV: 500ml; Total: 500ml. ethan Outcome: 16:57 Decision to Hospitalize by Provider. gregoria 20:53 Patient left the ED. ethan Signatures: Dispatcher [employer] EDNY Murali Fuentes MD MD cha Williams, Irene, RN Adrianna Jimenez Elena RN Miguelangel Otto ea, RN RN jPérez Clemens RN JENELLE bp Paige Antunez RN RN ca1
--- NOTE | 2020-05-29 16:58 | EDPHYS ---
Physician Documentation [facility] Name: Violette Owens Age: 79 yrs Sex: Female : 1940 Arrival Date: 05/29/2020 Time: 14:15 Bed 4 Private MD: Luis Sofia T ED Physician Murali Fuentes HPI: 05/29 15:14 This 79 yrs old Female presents to ER via Ambulatory with complaints of gregoria Altered Mental Status. 15:14 The patient presents with confusion, decreased mental status. Onset: The gregoria symptoms/episode began/occurred 1 week(s) ago. Possible causes: CVA or TIA, low blood sugar, sepsis. Associated signs and symptoms: Pertinent positives: confusion, lightheadedness, shortness of breath. Current symptoms: In the emergency department the patient's symptoms have worsened, mildly. Patient's baseline: Neuro: alert but confused. The patient has not experienced similar symptoms in the past. Historical: - Allergies: 14:35 No Known Allergies; iw - PMHx: 14:35 Hyperlipidemia; Hypertension; iw - PSHx: 14:35 Cholecystectomy; Appendectomy; ; Hysterectomy; iw - Immunization history:: Adult Immunizations not up to date. - Social history:: Smoking status: Patient denies any tobacco usage or history of. - Family history:: not pertinent. ROS: 15:14 Constitutional: Negative for fever, chills, and weight loss, Eyes: Negative for injury, gregoria pain, redness, and discharge, ENT: Negative for injury, pain, and discharge, Neck: Negative for injury, pain, and swelling, Cardiovascular: Negative for chest pain, palpitations, and edema, Respiratory: Negative for shortness of breath, cough, wheezing, and pleuritic chest pain, Abdomen/GI: Negative for abdominal pain, nausea, vomiting, diarrhea, and constipation, Back: Negative for injury and pain, : Negative for injury, bleeding, discharge, and swelling, MS/Extremity: Negative for injury and deformity, Skin: Negative for injury, rash, and discoloration, Psych: Negative for depression, anxiety, suicide ideation, homicidal ideation, and hallucinations, Allergy/Immunology: Negative for hives, rash, and allergies, Endocrine: Negative for neck swelling, polydipsia, polyuria, polyphagia, and marked weight changes, Hematologic/Lymphatic: Negative for swollen nodes, abnormal bleeding, and unusual bruising. 15:14 Neuro: Positive for altered mental status, dizziness, weakness. Exam: 15:14 Constitutional: This is a well developed, well nourished patient who is awake, alert, gregoria and in no acute distress. Head/Face: Normocephalic, atraumatic. Eyes: Pupils equal round and reactive to light, extra-ocular motions intact. Lids and lashes normal. Conjunctiva and sclera are non-icteric and not injected. Cornea within normal limits. Periorbital areas with no swelling, redness, or edema. ENT: Nares patent. No nasal discharge, no septal abnormalities noted. Tympanic membranes are normal and external auditory canals are clear. Oropharynx with no redness, swelling, or masses, exudates, or evidence of obstruction, uvula midline. Mucous membranes moist. Neck: Trachea midline, no thyromegaly or masses palpated, and no cervical lymphadenopathy. Supple, full range of motion without nuchal rigidity, or vertebral point tenderness. No Meningismus. Chest/axilla: Normal chest wall appearance and motion. Nontender with no deformity. No lesions are appreciated. Cardiovascular: Regular rate and rhythm with a normal S1 and S2. No gallops, murmurs, or rubs. Normal PMI, no JVD. No pulse deficits. Respiratory: Lungs have equal breath sounds bilaterally, clear to auscultation and percussion. No rales, rhonchi or wheezes noted. No increased work of breathing, no retractions or nasal flaring. Abdomen/GI: Soft, non-tender, with normal bowel sounds. No distension or tympany. No guarding or rebound. No evidence of tenderness throughout. Back: No spinal tenderness. No costovertebral tenderness. Full range of motion. MS/ Extremity: Pulses equal, no cyanosis. Neurovascular intact. Full, normal range of motion. Psych: Awake, alert, with orientation to person, place and time. Behavior, mood, and affect are within normal limits. 15:14 Skin: Appearance: Color: pale, Temperature: normal temperature, Moisture: petechiae, not noted, ecchymosis, not noted, flushing, not noted, diaphoresis is not appreciated. 15:23 ECG was reviewed by the Attending Physician. [facility] 16:54 Neck: ROM/movement: is normal, no acute changes, Meningeal signs: are not present, gregoria Kernig's sign is negative, Brudzinski's sign is negative. Vital Signs: 14:32 BP 92 / 41; Pulse 71; Resp 16; Temp 97.1; Pulse Ox 100% on R/A; Weight 44.45 kg; iw 15:30 BP 123 / 102; Pulse 71; Resp 16; Pulse Ox 100% ; bp 16:00 BP 129 / 105; Pulse 72; Resp 17; Pulse Ox 100% ; bp 20:03 BP 133 / 77; Pulse 68; Resp 18; Pulse Ox 98% on R/A; ea MDM: 14:40 Patient medically screened. gregoria 15:21 Differential Diagnosis: CVA, electrolyte abnormality, hypoglycemia, intracranial bleed, gregoria pneumonia, sepsis, TIA, UTI, volume depletion. Data reviewed: vital signs, nurses notes, lab test result(s), EKG, radiologic studies, CT scan, plain films. Data interpreted: library monitor: rate is 71 beats/min, rhythm is regular. Test interpretation: by ED physician or midlevel provider: ECG, plain radiologic studies. Counseling: I had a detailed discussion with the patient and/or guardian regarding: the historical points, exam findings, and any diagnostic results supporting the discharge/admit diagnosis, lab results, radiology results. 05/29 15:07 Order name: Basic Metabolic Panel [facility] 05/29 15:07 Order name: CBC with Diff [facility] 05/29 15:07 Order name: LFT's [facility] 05/29 15:07 Order name: Magnesium [facility] 05/29 15:07 Order name: NT PRO-BNP [facility] 05/29 15:07 Order name: PT-INR [facility] 05/29 15:07 Order name: Troponin (emerg Dept Use Only); Complete Time: 17:04 [facility] 05/29 15:07 Order name: Lipase; Complete Time: 17:04 [facility] 05/29 15:07 Order name: Urine Culture [facility] 05/29 15:07 Order name: Lactate; Complete Time: 17:46 [facility] 05/29 15:07 Order name: Blood Culture Adult (2) [facility] 05/29 15:07 Order name: Basic Metabolic Panel; Complete Time: 17:04 EDMS 05/29 15:07 Order name: CBC with Automated Diff; Complete Time: 19:48 EDMS 05/29 15:07 Order name: XRAY Chest (1 view); Complete Time: 16:25 [facility] 05/29 15:07 Order name: CT Head Brain wo Cont; Complete Time: 16:25 [facility] 05/29 15:07 Order name: Liver (Hepatic) Function; Complete Time: 17:04 EDMN 05/29 15:07 Order name: Magnesium; Complete Time: 17:04 EDMS 05/29 15:07 Order name: NT PRO-BNP; Complete Time: 17:04 EDMS 05/29 15:07 Order name: Protime (+INR); Complete Time: 16:34 EDMS 05/29 15:09 Order name: Type And Screen; Complete Time: 17:46 [facility] 05/29 17:05 Order name: ABG [facility] 05/29 17:05 Order name: ABG Arterial Blood Gas; Complete Time: 19:48 EDMN 05/29 17:51 Order name: CRP; Complete Time: 22:25 [facility] 05/29 17:51 Order name: Procalcitonin; Complete Time: 22:25 [facility] 05/29 18:17 Order name: SARS-COV-2 RT PCR; Complete Time: 18:43 EDMN 05/29 18:20 Order name: Urine Dipstick--Ancillary (enter results); Complete Time: 22:25 05/29 18:43 Order name: Manual Differential; Complete Time: 19:48 EDMN 05/29 18:46 Order name: Lipid Profile; Complete Time: 22:25 [facility] 05/29 20:06 Order name: Lactate Sepsis 2 HR Follow-up; Complete Time: 22:25 EDMN 05/29 15:07 Order name: EKG; Complete Time: 15:08 [facility] 05/29 15:07 Order name: Cardiac monitoring; Complete Time: 15:09 [facility] 05/29 15:07 Order name: EKG - Nurse/Tech; Complete Time: 15:19 [facility] 05/29 15:07 Order name: IV Saline Lock; Complete Time: 15:56 [facility] 05/29 15:07 Order name: Labs collected and sent; Complete Time: 15:56 [facility] 05/29 15:07 Order name: O2 Per Protocol; Complete Time: 15:09 [facility] 05/29 15:07 Order name: O2 Sat Monitoring; Complete Time: 15:09 [facility] 05/29 15:07 Order name: Urine Dipstick-Ancillary (obtain specimen); Complete Time: 18:18 [facility] 05/29 17:03 Order name: CT Chest Abdomen Pelvis W/O Contrast: no iv , no oral; Complete Time: 17:46 [facility] 05/29 17:52 Order name: Abdomen Limited US: Please eval Pancreas/kidneys; Complete Time: 22:25 la1 EC:23 Rate is 67 beats/min. Rhythm is regular. QRS Cameron is Normal. ID interval is normal. QRS gregoria interval is normal. QT interval is normal. No Q waves. T waves are Normal. No ST changes noted. Clinical impression: NSR w/ Non-specific ST/T Changes and No evidence of ischemia. Interpreted by me. Reviewed by me. Administered Medications: 15:45 Drug: NS 0.9% 500 ml Route: IV; Rate: bolus; Site: left antecubital; bp 20:19 Follow up: Response: No adverse reaction; IV Status: Completed infusion; IV Intake: ea 500ml 15:45 Drug: NS 0.9% 1000 ml Route: IV; Rate: 125 ml/hr; Site: left antecubital; bp 15:45 Drug: Pepcid 20 mg Route: IVP; Site: left antecubital; bp 20:19 Follow up: Response: No adverse reaction ea 15:45 Drug: Thiamine 100 mg Route: IV; Rate: bolus; Site: left antecubital; bp 20:19 Follow up: IV Status: Completed infusion ea 15:45 Drug: Rocephin 1 grams Route: IV; Rate: per protocol; Site: left antecubital; bp 20:19 Follow up: IV Status: Completed infusion ea 15:45 Drug: Solu-CORTEF 100 mg Route: IVP; Site: left antecubital; bp 16:10 Follow up: Response: No adverse reaction bp 20:02 Drug: NS 0.9% 1000 ml Route: IV; Rate: 1 bolus; Site: left antecubital; ea 20:02 Drug: levofloxacin 500 mg Volume: 100 ml; Route: IVPB; Infused Over: 60 mins; Site: ea left antecubital; Disposition: 05/29/20 16:57 Hospitalization ordered by Foster Lyons for Inpatient Admission. Preliminary diagnosis are Altered mental status, unspecified, Dyspnea, Elevated white blood cell count, Acute tubulo-interstitial nephritis - RIGHT PYELONEPHRITIS, Unspecified kidney failure - INSUFFICENCY, Hyperglycemia, unspecified, Anemia, unspecified. - Bed requested for Telemetry/MedSurg (Inpatient). - Status is Inpatient Admission. ea - Condition is Fair. - Problem is new. - Symptoms have improved. Signatures: Dispatcher [employer] [facility] Murali Fuentes MD MD cha Williams, Irene, RN RN iw Rosendo Harley, PILE DRIVER OPERATOR-C PILE DRIVER OPERATOR-Cla1 Damari Erazo, JENELLE ALMANZAR cg Elvira Munoz RN RN ea Peltier, Brian, RN RN bp Corrections: (The following items were deleted from the chart) 17:31 15:08 CORONAVIRUS+MR.LAB.BRZ ordered. [facility] 19:55 16:57 Hospitalization Ordered by Foster Lyons MD for Inpatient Admission. Preliminary [facility] diagnosis is Altered mental status, unspecified; Dyspnea; Elevated white blood cell count. Bed requested for Telemetry/MedSurg (Inpatient). Status is Inpatient Admission. Condition is Fair. Problem is new. Symptoms have improved. [facility] 20:13 19:55 05/29/2020 16:57 Hospitalization Ordered by Foster Lyons MD for Inpatient cg Admission. Preliminary diagnosis is Altered mental status, unspecified; Dyspnea; Elevated white blood cell count; Acute tubulo-interstitial nephritis - RIGHT PYELONEPHRITIS; Unspecified kidney failure - INSUFFICENCY; Hyperglycemia, unspecified; Anemia, unspecified. Bed requested for Telemetry/MedSurg (Inpatient). Status is Inpatient Admission. Condition is Fair. Problem is new. Symptoms have improved. [facility] 20:53 20:13 05/29/2020 16:57 Hospitalization Ordered by Foster Lyons MD for Inpatient ea Admission. Preliminary diagnosis is Altered mental status, unspecified; Dyspnea; Elevated white blood cell count; Acute tubulo-interstitial nephritis - RIGHT PYELONEPHRITIS; Unspecified kidney failure - INSUFFICENCY; Hyperglycemia, unspecified; Anemia, unspecified. Bed requested for Telemetry/MedSurg (Inpatient). Status is Inpatient Admission. Condition is Fair. Problem is new. Symptoms have improved. cg
[2020-05-29 17:02] LABS: ALT/SGPT 25 U/L (12-78); AST/SGOT 13 U/L (15-37); Albumin 2.8 g/dL (3.4-5.0); Alkaline Phosphatase 154 U/L (45-117); BUN Blood Urea Nitrogen 39 mg/dL (7-18); Bicarbonate 25 mmol/L (21-32); Bilirubin Direct 0.2 mg/dL (0-0.2); Bilirubin Total 0.5 mg/dL (0.2-1.0); Lipase 2367 U/L (73-393); NT PRO-BNP 837 pg/mL (<450); Potassium 4.3 mmol/L (3.5-5.1); Protein, Total 6.6 g/dL (6.4-8.2); Sodium Level 130 mmol/L (136-145); Troponin (Emerg Dept Use Only) < 0.02 ng/mL (0.0-0.045)
[2020-05-29 17:03] LABS: Glucose Level 604 mg/dL (74-106)
--- NOTE | 2020-05-29 17:29 | RAD REPORT ---
EXAM DESCRIPTION: CT - Chest Abd Pelvis Wo Con - 05/29/2020 5:17 pm CLINICAL HISTORY: COUGH, abnormal white count, infection of unknown site COMPARISON: Chest Single View dated 05/29/2020; Abdomen Pelvis Wo Contrast dated 06/13/2017 TECHNIQUE: Axial 5 millimeter thick images of the chest, abdomen and pelvis were obtained without IV contrast. Oral contrast was administered. All CT scans are performed using dose optimization technique as appropriate and may include automated exposure control or mA/KV adjustment according to patient size. FINDINGS: Apical pleural thickening and pleural calcifications are present with subpleural parenchym al stranding. Mild additional subpleural fibrotic stranding changes are present. No mass or infiltrat e of the lung parenchyma. No pneumothorax or pleural effusion. No chest wall mass or abnormal axilla ry lymphadenopathy seen. Mediastinal and hilar regions show no mass or lymphadenopathy. Coronary ar kang and aortic calcifications are present. Heart size is upper normal. Minimal pericardial effusion present. Pericardial fluid is not substantially different from the 2018 study. The liver, spleen and pancreas show no significant findings for non contrast imaging. Gallbladder is absent. Biliary tree within normal limits. No hydronephrosis present. No obstructing or nonobstructing calculi. Posterior mid and upper pole rig ht kidney shows a somewhat heterogeneous attenuation. This is nonspecific finding. Pyelonephritis is not excluded in the absence of contrast. Pyelonephritis is difficult to assess 1 no contrast is prese nt. Correlation is needed with any UA findings that may suggest infection. No bladder wall thickening or edema identifiable. No bladder calculus. Uterus is absent. Ovaries are absent or atrophic. No gastric wall thickening or edema. Moderate-size hiatal hernia is present increased in size since 2 018. Approximately 20% of the stomach is intrathoracic. No dilated large or small bowel. Cecum is low lying along the right-side pelvic floor. Appendix is normal. No free air, free fluid or inflammatory stranding. No hernia, mass or bulky lymphadenopathy. Disc and bony degenerative changes are present. No finding that would suggest discitis or osteomyelit is. No paraspinal masses are identified. No vascular abnormality evident on noncontrast imaging. IMPRESSION: CT chest imaging shows chronic pleuroparenchymal changes but no acute or suspicious find ing. Right kidney is slightly heterogeneous in attenuation. Pyelonephritis cannot be accurately assessed i n the absence of contrast. Correlation can be made with any UA findings that may suggest infection. U rinary bladder is unremarkable. No acute GI finding identified. Gallbladder is absent and no biliary tree abnormality seen. CT abdomen and pelvis imaging shows no significant or suspicious finding.
[2020-05-29 17:38] LABS: Arterial Blood Carboxyhemoglob 1.4 % (0-1.5); Blood Gas Oxyhemoglobin 94.7 % (94-97); Blood O2 Saturation 97.3 % (92-98.5)
[2020-05-29 18:43] LABS: Blood Morphology Comment NOT SEEN (NOT SEEN); Platelet Estimate ADEQ
--- NOTE | 2020-05-29 19:55 | RAD REPORT ---
EXAM DESCRIPTION: US - Abdomen Exam Limited - 05/29/2020 7:26 pm CLINICAL HISTORY: ABD PAIN COMPARISON: Abdomen Exam Complete dated 06/17/2017; Chest Abd Pelvis Wo Con dated 05/29/2020; Abdomen Pelvis Wo Contrast dated 06/13/2017 FINDINGS: Gallbladder is absent. No abnormal biliary tree dilatation. No pancreatic or peripancreati c sonographic abnormality seen. In the posteromedial mid upper pole right kidney there is a 2 centimeter area of decreased echogenici ty. Size and location correspond to the CT finding. This could be a complex cyst. Renal mass or area of pyelonephritis cannot be excluded. Sonography is very limited in pyelonephritis assessment. No per inephric fluid or stranding. IMPRESSION: No pancreatic or peripancreatic abnormality identified. Hypoechoic focus in the right kidney is suspected to be mildly complex cyst and the correlate to the CT finding. Pyelonephritis is not excluded. Sonography is limited in pyelonephritis assessment. Corre lation can be made with UA abnormalities. Aggressive mass of the right kidney is not likely etiology. Follow-up can be obtained as clinical fin dings warrant. Preferably this can be done with iodinated contrast.
[2020-05-29 20:04] LABS: Urine Blood 2+ (NEG); Urine Glucose 2+ (NEG); Urine Protein NEGATIVE (NEG); Urine pH 5.5 (5.0-7.0)
[2020-05-29] MEDS ORDERED: INSULIN -REGULAR HUMAN 50 UNIT/0.5 ML ML ONE (20:07)
[2020-05-29] MEDS ORDERED: Levofloxacin500mg IV 500 MG/100 ML BAG IV ONE (20:14)
[2020-05-29] MEDS ORDERED: ONDANSETRON 4 MG/2 ML VIAL IV PRN (21:08)
[2020-05-29] MEDS ORDERED: HYDROCODONE/APAP 5/325 MG TAB PO PRN (21:08)
[2020-05-29] MEDS ORDERED: MELATONIN 5 MG TABLET PO PRN (21:08)
[2020-05-29] MEDS ORDERED: CEFEPIME 1 GM/VIAL IV SCH (21:08)
[2020-05-29] MEDS: INSULIN -REGULAR HUMAN 50 UNIT/0.5 ML ML SQ SCH (21:08)
[2020-05-29] MEDS ORDERED: ACETAMINOPHEN 500 MG TAB PO PRN (21:08)
[2020-05-29] MEDS ORDERED: CEFEPIME/SWI 1gm 10 ML IV SCH (21:30)
[2020-05-29] MEDS: NA CHLORIDE 0.9% 1,000 ML IV SCH (21:31)
[2020-05-29 21:36] LABS: HDL Cholesterol 20 mg/dL (40-60)
[2020-05-29 21:48] VITALS: BMI 19.7
[2020-05-29 21:50] LABS: LDL, Direct 45 mg/dL (100-129)
[2020-05-29] MEDS ORDERED: D50W 25 GM/50 ML SYRINGE IV PRN (22:21)
[2020-05-29] MEDS ORDERED: GLUCAGON 1 MG/VIAL IM PRN (22:21)
[2020-05-29] MEDS: ZOLPIDEM TARTRATE 10 MG TABLET PO PRN (22:31)
--- NOTE | 2020-05-29 22:35 | P.HP ---
Certification for Inpatient Patient admitted to: Inpatient With expected LOS: >2 Midnights Patient will require the following post-hospital care: None Practitioner: I am a practitioner with admitting privileges, knowledge of patient current condition, hospital course, and medical plan of care. Services: Services provided to patient in accordance with Admission requirements found in Title 42 Section 412.3 of the Code of Federal Regulations <CricketRosendo - Last Filed: 05/29/20 22:29> Patient History Date of Service: 05/29/20 Reason for admission: Pyelonephritis History of Present Illness: 79-year-old female with history of hypertension, hyperlipidemia presents emergency department for confusion, lethargy, malaise. Patient was initially hypertensive with blood pressure of 90/40 the heart rate remained around 70 and was afebrile. Workup in the emergency department significant for white blood cell count 36 hemoglobin 9.2 hematocrit 29.5 MCV 91.1 sodium 130, glucose 604 patient not a known diabetic creatinine 1.56 GFR 32 lactic acid initially 2.3, lipase 2367 urine nitrite positive with trace leukocytes pro c alcitonin 7.25 C-reactive protein 134 chest x-ray chronic interstitial lung disease CT chest abdomen pelvis significant for heterogenous right kidney, pyelonephritis cannot be excluded they should be correlated with UA. CT head unremarkable. ED provider wishes to admit patient for pyelonephritis, hyperglycemia. When I saw the patient in the ER she is awake, alert, oriented x3. Patient appears pale but family reports this is how she usually looks. Patient given Rocephin, Levaquin in the emergency department, mental status has improved blood pressure also improved to 130 3/77 heart rate 68 respiratory rate 18. Ultrasound of the pancreas and kidneys obtained without any concerning findings. Patient currently with severe sepsis likely secondary to pyelonephritis. - Past Medical/Surgical History Has patient received pneumonia vaccine in the past: Yes Diabetic: No -: Hyperlipidemia -: HTN -: GERD -: Insomnia -: GERD -: Cholecystectomy -: Appendectomy -: -: Hysterectomy Psychosocial/ Personal History: The patient lives at home. - Family History Father -: Cancer Mother -: Hypertension, Cancer Brother -: Cancer - Social History Smoking Status: Never smoker Alcohol use: Yes CD- Drugs: No Caffeine use: Yes Place of Residence: Home <Rosendo Harley - Last Filed: 05/29/20 22:29> Date of Service: 05/30/20 <Foster Lyons - Last Filed: 05/30/20 20:38> Allergies No Known Allergies Allergy (Verified 06/13/17 22:40) Home Medications: Allopurinol 1 tab PO DAILY 06/13/17 Candesartan Cilexetil 32 mg PO DAILY 06/13/17 Zolpidem Tartrate [Ambien] 1 tab PO BEDTIME 06/13/17 Atorvastatin Calcium [Lipitor*] 10 mg PO BEDTIME #30 tab 06/18/17 Famotidine [Pepcid*] 20 mg PO BID #60 tab 06/18/17 Ferrous Sulfate [Feosol] 325 mg PO TID #90 tablet 06/18/17 Magnesium Oxide [Mag 0X*] 400 mg PO BID #60 tab 06/18/17 carvediloL [Coreg*] 6.25 mg PO BID #60 tab 06/18/17 Review of Systems 10-point ROS is otherwise unremarkable General: Chills, Weakness, Malaise Respiratory: Cough Gastrointestinal: Nausea <Rosendo Harley - Last Filed: 05/29/20 22:29> Physical Examination - Vital Signs Temperature: 96.8 F Blood Pressure: 151/62 Pulse: 68 Respirations: 19 Pulse Ox (%): 99 - Physical Exam General: Alert, In no apparent distress HEENT: Atraumatic, PERRLA, Mucous membr. moist/pink Neck: Supple, 2+ carotid pulse no bruit, No LAD Respiratory: Clear to auscultation bilaterally, Normal air movement Cardiovascular: Regular rate/rhythm, Normal S1 S2 Gastrointestinal: Normal bowel sounds, No tenderness Musculoskeletal: No tenderness Integumentary: No rashes Neurological: Normal speech, Normal strength at 5/5 x4 extr, Normal tone, Normal affect - Studies Laboratory Data (last 24 hrs) 05/29/20 15:50: Triglycerides 467 H, Cholesterol 133, LDL Cholesterol Direct 45 L, HDL Cholesterol 20 L, Cholesterol/HDL Ratio 6.65 05/29/20 15:50: PT 12.8 H, INR 1.11 05/29/20 15:50: WBC 36.00 H*, Hgb 9.2 L, Hct 29.5 L, Plt Count 364 05/29/20 15:50: Sodium 130 L, Potassium 4.3, BUN 39 H, Creatinine 1.56 H, Glucose 604 H*, Magnesium 2.0, Total Bilirubin 0.5, AST 13 L, ALT 25, Alkaline Phosphatase 154 H, Lipase 2367 H <Rosendo Harley - Last Filed: 05/29/20 22:29> - Studies Laboratory Data (last 24 hrs) 05/29/20 15:50: Triglycerides 467 H, Cholesterol 133, LDL Cholesterol Direct 45 L, HDL Cholesterol 20 L, Cholesterol/HDL Ratio 6.65 <Foster Lyons - Last Filed: 05/30/20 20:38> Assessment and Plan - Plan Assessment Severe sepsis secondary to pyelonephritis Hyperglycemia likely with undiagnosed diabetes mellitus type 2 Hypertension Hyperlipidemia Plan Severe sepsis secondary to pyelonephritis: Continue with vancomycin/cefepime, continue to monitor daily labs, blood and urine cultures obtained in the emergency department. Lipase level elevated at around 2000, trend lipase level clear liquids for now, patient not experiencing any abdominal pain or tenderness. Patient also without CVA tenderness. White blood cell count significantly elevated. DVT prophylaxis Lovenox 40 mg subcutaneous once daily. Hyperglycemia likely with undiagnosed diabetes mellitus type 2: A1c with morning labs, patient given 30 units of Lantus in the emergency department, continue with 20 units every night. ADA diet after clear liquid. Hypertension: Obtain and continue home medications as appropriate and adjust as needed Hyperlipidemia: Obtain and continue home medications as appropriate and adjust as needed Discharge Plan: Home Plan to discharge in: Greater than 2 days - Advance Directives Does patient have a Living Will: Yes Does patient have a Durable POA for Healthcare: Yes - Code Status/Comfort Care Code Status Assessed: Yes (Full code) Critical Care: No Time Spent Managing Pts Care (In Minutes): 55 <Rosendo Harley - Last Filed: 05/29/20 22:29> - Plan Plan of care reviewed as noted above by Rosendo Harley. Severe sepsis 2/2 pyelonephritis - continue empiric antibiotics, f/u cultures. metabolic encephalopathy 2/2 sepsis - improving <Foster Lyons - Last Filed: 05/30/20 20:38>
[2020-05-29] MEDS ORDERED: VANCOMYCIN/NS 1 gm 1 GM/250 ML BAG IVPB SCH (22:45)
[2020-05-29] MEDS ORDERED: VANCOMYCIN 1.25 GM in NA CHLORIDE 0.9% 250 ML IVPB ONE (23:00)
[2020-05-29] MEDS ORDERED: VANCOMYCIN 1 GM/VIAL ONE (23:43)
[2020-05-29] MEDS ORDERED: VANCOMYCIN 500 MG/VIAL ONE (23:44)
[2020-05-29] MEDS ORDERED: NA CHLORIDE 0.9% 250 ML ONE (23:47)
--- NOTE | 2020-05-30 05:11 | P.INFCA ---
Sepsis Focused Assessment - Focused Assessment Complete? Sepsis Focused Assessment Completed?: Yes - Sepsis Screen Result Severe Sepsis: Positive Septic Shock: Negative - Evaluation Current stage of sepsis: Severe sepsis - Vital Signs Reviewed: Yes Temperature: 97.2 F Heart rate: 70 Blood Pressure: 139/91 Respiratory Rate: 19 O2 Sat by Pulse Oximetry: 93 - Examination Date exam was performed: 05/30/20 Time exam was performed: 01:00 Heart: Regular rate/rhythm Lungs: Clear bilaterally Peripheral pulses: 3+ Normal Peripheral pulse location: Radial Capillary refill: <2 Seconds Skin examination: Normal turgor
[2020-05-30 06:27] LABS: Absolute Lymphocytes (CBC) 0.8 K/uL (0.7-4.9); Basophils % 0.1 % (0-1.3); Lymphocytes % 3.4 % (15.3-44.8); RBC Red Blood Cell Count 3.04 M/uL (3.86-4.86)
[2020-05-30] MEDS: NA CHLORIDE 0.9% 1,000 ML IV SCH ×3 (07:08→17:08)
[2020-05-30 07:34] LABS: Albumin 2.3 g/dL (3.4-5.0); Bilirubin Total 0.3 mg/dL (0.2-1.0); Ferritin 257.5 ng/mL (8-388); Magnesium 1.9 mg/dL (1.8-2.4); Potassium 3.9 mmol/L (3.5-5.1); Protein, Total 5.5 g/dL (6.4-8.2); Thyroid Stimulating Hormone 0.438 uIU/mL (0.360-3.740)
[2020-05-30] MEDS ORDERED: ENOXAPARIN 40 MG/0.4 ML SQ SCH (09:00)
[2020-05-30] MEDS ORDERED: D50W 25 GM/50 ML VIAL IV PRN (09:00)
[2020-05-30] MEDS: ENOXAPARIN 30 MG/0.3 ML SQ SCH (09:24)
[2020-05-30] MEDS: INSULIN -REGULAR HUMAN 50 UNIT/0.5 ML ML SQ SCH ×4 (09:24→21:14)
--- NOTE | 2020-05-30 09:25 | P.PN ---
Subjective Date of Service: 05/30/20 Chief Complaint: Pyelonephritis Subjective: Improving (feeling better, denies pain, continues with some mild confusion. seems more alert/oriented. no nausea/vomiting) Review of Systems 10-point ROS is otherwise unremarkable Physical Examination - Vital Signs Temperature: 97.2 F Blood Pressure: 139/91 Pulse: 70 Respirations: 19 Pulse Ox (%): 93 - Studies Laboratory Data (last 24 hrs) 05/29/20 15:50: Triglycerides 467 H, Cholesterol 133, LDL Cholesterol Direct 45 L, HDL Cholesterol 20 L, Cholesterol/HDL Ratio 6.65 05/29/20 15:50: PT 12.8 H, INR 1.11 05/29/20 15:50: WBC 36.00 H*, Hgb 9.2 L, Hct 29.5 L, Plt Count 364 05/29/20 15:50: Sodium 130 L, Potassium 4.3, BUN 39 H, Creatinine 1.56 H, Glucose 604 H*, Magnesium 2.0, Total Bilirubin 0.5, AST 13 L, ALT 25, Alkaline Phosphatase 154 H, Lipase 2367 H Assessment & Plan Physician Review Additional Text: Physical Exam General: Alert, NAD, oriented x2 HEENT: Mucous membr. moist/pink Pulm: Clear to auscultation bilaterally, Normal air movement CV: Regular rate/rhythm, Normal S1 S2 Abd: nontender, nondistended, no CVA tenderness Ext: No tenderness, no rash, no edema Neurological: Normal speech, Normal strength at 5/5 x4 extr Problem List Severe sepsis secondary to pyelonephritis Bacteremia Metabolic encephalopathy secondary to severe sepsis Hyperglycemia likely with undiagnosed diabetes mellitus type 2 Hypertension Hyperlipidemia -continue Vanc/Cefepime, WBC downtrending, pt's mental status improving, feeling better -CLD for now, ADAT -trending lipase -HgA1c: 10 - previously was undiagnosed diabetes -continue lantus 20u at night -obtain/confirm home meds and restart as appropriate VTE: Lovenox Code: full Dispo: dc home in 3-4 days Time Spent Managing Pts Care (In Minutes): 35
[2020-05-30] MEDS: INSULIN GLARGINE 100 UNITS/ML SQ SCH (17:44)
[2020-05-30] MEDS: ZOLPIDEM TARTRATE 10 MG TABLET PO PRN (21:14)
[2020-05-30] MEDS: CEFEPIME/SWI 1gm 10 ML IV SCH (21:15)
[2020-05-31 05:49] LABS: Absolute Lymphocytes (CBC) 0.4 K/uL (0.7-4.9); Basophils % 0.3 % (0-1.3); Hematocrit 26.8 % (36.0-45.0); Lymphocytes % 2.4 % (15.3-44.8)
[2020-05-31 06:11] LABS: Albumin 2.1 g/dL (3.4-5.0); Bilirubin Total 0.5 mg/dL (0.2-1.0); Magnesium 1.6 mg/dL (1.8-2.4); Potassium 3.4 mmol/L (3.5-5.1); Protein, Total 5.2 g/dL (6.4-8.2)
[2020-05-31 08:02] LABS: Blood Morphology Comment NOT SEEN (NOT SEEN); Platelet Estimate ADEQ; White Blood Cell Scan OK (OK)
[2020-05-31] MEDS ORDERED: MAGNESIUM SULFATE 1 gm IVPB 1 GM/100 ML BAG IV ONE (09:00)
[2020-05-31] MEDS ORDERED: POTASSIUM 25 MEQ EFFERV TAB PO ONE (09:00)
[2020-05-31] MEDS: ENOXAPARIN 30 MG/0.3 ML SQ SCH (10:33)
[2020-05-31] MEDS: INSULIN -REGULAR HUMAN 50 UNIT/0.5 ML ML SQ SCH ×4 (10:33→20:44)
[2020-05-31 10:49] VITALS: O2SAT 97
--- NOTE | 2020-05-31 11:39 | P.PN ---
Subjective Date of Service: 05/31/20 Chief Complaint: Pyelonephritis Subjective: Improving (Feeling better, tolerating diet, reports some mild nausea but no vomiting. More alert/oriented) Review of Systems 10-point ROS is otherwise unremarkable Physical Examination - Vital Signs Temperature: 98.0 F Blood Pressure: 155/68 Pulse: 93 Respirations: 16 Pulse Ox (%): 97 Assessment & Plan Physician Review Additional Text: Physical Exam General: Alert, NAD, oriented x3 HEENT: Mucous membr. moist/pink Pulm: Clear to auscultation bilaterally, Normal air movement CV: Regular rate/rhythm, Normal S1 S2 Abd: nontender, nondistended, no CVA tenderness Ext: No tenderness, no rash, no edema Neurological: Normal speech, Normal strength at 5/5 x4 extr Problem List Severe sepsis secondary to pyelonephritis Bacteremia Metabolic Encephalopathy secondary to severe sepsis Diabetes mellitus type 2 - newly diagnosed Hypertension Hyperlipidemia -started on Vanc/Cefepime, WBC downtrending, pt's mental status improving, feeling better -Urine Cx: Klebsiella, Blood: GNR+, ID consulted -repeat blood cultures today -tolerated CLD - advance diet to diabetic diet -lipase normalized -HgA1c: 10 - previously was undiagnosed diabetes -continue lantus 20u at night, titrate as needed VTE: Lovenox Code: full Dispo: dc home in 2-3 days Time Spent Managing Pts Care (In Minutes): 35
[2020-05-31] MEDS ORDERED: VANCOMYCIN 750 MG in NA CHLORIDE 0.9% 250 ML IVPB SCH (12:00)
[2020-05-31] MEDS ORDERED: VANCOMYCIN 750 MG in NA CHLORIDE 0.9% 150 ML IVPB SCH (12:00)
[2020-05-31] MEDS: NA CHLORIDE 0.9% 1,000 ML IV SCH ×2 (12:29→16:58)
--- NOTE | 2020-05-31 13:24 | P.CNS ---
Date of Consult: 05/31/20 Chief Complaint: Pyelonephritis History of Present Illness: The patient is a 79-year-old female with a past medical history of hypertension and hyperlipidemia presented to the ER due to confusion, lethary, and malaise. ED vitals: hypotensive with a BP of 90/40, pulse of 70, and afebrile. Workup was performed which found significant leukocytosis with a WBC of 36, anemia with a hemoglobin 9.2, glucose of 604 however patient is not a known diabetic and does not take at home diabetes medication, elevated lactic acid and procal, and positive UA. Patient dignosed with sepsis due to pyelonephritis and was admitted for further monitoring. Urine culture grew Klebsiella pneumoniae. Awaiting blood cultures. Leukocytosis still present, however it is down trending. He patient was placed on IV vancomycin and cefepime. IV vancomycin has been discontinued following results urine cultures. The patient denies nausea, vomiting, diarrhea, SOB, chest pain. She states that she is feeling normal and is much more oriented today. Allergies No Known Allergies Allergy (Verified 06/13/17 22:40) Home Medications: Allopurinol 1 tab PO DAILY 06/13/17 Candesartan Cilexetil 32 mg PO DAILY 06/13/17 Zolpidem Tartrate [Ambien] 1 tab PO BEDTIME 06/13/17 Atorvastatin Calcium [Lipitor*] 10 mg PO BEDTIME #30 tab 06/18/17 Famotidine [Pepcid*] 20 mg PO BID #60 tab 06/18/17 Ferrous Sulfate [Feosol] 325 mg PO TID #90 tablet 06/18/17 Magnesium Oxide [Mag 0X*] 400 mg PO BID #60 tab 06/18/17 carvediloL [Coreg*] 6.25 mg PO BID #60 tab 06/18/17 - Past Medical/Surgical History Diabetic: No -: Hyperlipidemia -: HTN -: GERD -: Insomnia -: GERD -: Cholecystectomy -: Appendectomy -: -: Hysterectomy Psychosocial/ Personal History: The patient lives at home. - Family History Father Medical History: Cancer Mother Medical History: Hypertension, Cancer Brother Medical History: Cancer - Social History Alcohol use: Yes CD- Drugs: No Caffeine use: Yes Place of Residence: Home Review of Systems 10-point ROS is otherwise unremarkable Physical Examination Temp Pulse Resp BP Pulse Ox 97.8 F 89 16 148/65 H 96 05/31/20 12:00 05/31/20 12:00 05/31/20 12:00 05/31/20 12:00 05/31/20 12:00 General: Alert, In no apparent distress HEENT: Atraumatic, Normocephalic Neck: Supple, 2+ carotid pulse no bruit, JVD not distended Respiratory: Clear to auscultation bilaterally, Normal air movement Cardiovascular: No edema, Regular rate/rhythm Capillary refill: <2 Seconds Gastrointestinal: Normal bowel sounds, Hypoactive, Soft and benign Integumentary: No rashes, No breakdown, No significant lesion Neurological: Normal speech 05/29/20 18:16 Clean Catch Urine [place]orn Count - Preliminary BETWEEN 10,000 & 100,000 CFU/ML 05/29/20 18:16 Clean Catch Urine - Preliminary Klebsiella Pneumoniae 05/29/20 16:10 Blood - Blood Aerobic Blood Culture - Preliminary 05/29/20 16:10 Blood - Blood Blood Culture Gram Stain - Preliminary 05/29/20 16:10 Blood - Blood Anaerobic Blood Culture - Preliminary 05/29/20 16:10 Blood - Blood Gram Stain - Preliminary 05/29/20 15:50 Blood - Blood Aerobic Blood Culture - Preliminary 05/29/20 15:50 Blood - Blood Blood Culture Gram Stain - Preliminary 05/29/20 15:50 Blood - Blood Anaerobic Blood Culture - Preliminary 05/29/20 15:50 Blood - Blood Gram Stain - Preliminary Physician Review Additional Text: Assessment: -severe sepsis due to pyelonephritis -leukocytosis -undiagnosed diabetes type 2 -LEELA Plan: -Continue IV cefepime. Awaiting blood cultures. Continue a antibiotic therapy for 2 weeks after negative blood culture results. Can DC patient on an oral antibiotic. Recommend bactrim if renal function improves. -continue to watch renal function. Patient has no history of any chronic renal disease however she does have an elevated creatinine at 0.7 with a GFR of 72. Likely due to pyelonephritis/sepsis -Medical management per primary team -continue monitor CBC and BMP -continuing to monitor for signs of infection Plan of care discussed with Dr. Vivas.
[2020-05-31 14:36] LABS: Urine Appearance CLEAR; Urine Bilirubin NEGATIVE (NEG); Urine Blood 1+ (NEG); Urine Color YELLOW; Urine Glucose 3+ (NEG); Urine Protein NEGATIVE (NEG); Urine Urobilinogen 0.2 mg/dL (0.2-1.0)
[2020-05-31 14:41] LABS: Urine Microscopic Reflex ORDER UMIC
[2020-05-31 14:49] LABS: Urine Bacteria <20 /HPF (<20)
[2020-05-31] MEDS: INSULIN GLARGINE 100 UNITS/ML SQ SCH (16:58)
[2020-05-31] MEDS: ZOLPIDEM TARTRATE 10 MG TABLET PO PRN (20:44)
[2020-05-31] MEDS: CEFEPIME/SWI 1gm 10 ML IV SCH (20:44)
[2020-06-01 07:29] LABS: Albumin 1.9 g/dL (3.4-5.0); Bilirubin Total 0.3 mg/dL (0.2-1.0); Magnesium 2.1 mg/dL (1.8-2.4); Potassium 3.5 mmol/L (3.5-5.1); Protein, Total 5.1 g/dL (6.4-8.2)
[2020-06-01] MEDS: INSULIN -REGULAR HUMAN 50 UNIT/0.5 ML ML SQ SCH ×3 (07:30→16:30)
[2020-06-01 07:34] LABS: Basophils % 0.2 % (0-1.3); Hematocrit 29.4 % (36.0-45.0); Lymphocytes % 6.9 % (15.3-44.8); MPV 9.1 fL (7.6-11.3); RBC Red Blood Cell Count 3.24 M/uL (3.86-4.86)
[2020-06-01] MEDS: NA CHLORIDE 0.9% 1,000 ML IV SCH (09:08)
[2020-06-01] MEDS: ENOXAPARIN 30 MG/0.3 ML SQ SCH (10:24)
[2020-06-01] MEDS ORDERED: POTASSIUM CL SA 10 MEQ TAB PO ONE (10:38)
--- NOTE | 2020-06-01 11:38 | P.DS ---
Admission Date: 05/29/20 Discharge Date: 06/01/20 Disposition: ROUTINE DISCHARGE Discharge Condition: FAIR Reason for Admission: Pyelonephritis Consultations: Infectious disease. Brief History of Present Illness: 79-year-old woman with a past medical history of hypertension, hyperlipidemia presented emergency department due to confusion and lethargy. Workup in the ED revealed hypertension, CVA leukocytosis with a white cell count of 36,000 elevated lactic acid and elevated lipase. UA suggested the presence of UTI. CT abdomen and pelvis reported heterogeneous right kidney, pyelonephritis not excluded. Patient diagnosed with severe sepsis and hospitalized for further management. Hospital Course: Sepsis protocol was initiated in the ED with aggressive IV hydration. Patient was started on IV cefepime and vancomycin. Her blood culture grew Klebsiella pneumoniae. Urine culture grew Klebsiella pneumonia and enterococcus faecalis. All organisms sensitive to fluoroquinolones. Patient was seen and evaluated by infectious disease who assisted with management. Repeat urine culture yielded no growth. Repeat blood culture no growth to date. Patient has clinically im proved and she is discharged with oral ciprofloxacin for 2 more weeks as recommended by infectious disease. Patient noted to have elevated blood sugar. Her hemoglobin A1c a was 10. Patient newly diagnosed with diabetes and started on Lantus insulin and insulin sliding scale. Her blood sugar readings were mostly within acceptable range. Patient is discharged with Lantus insulin. Patient will follow with her PCP within a couple of weeks. Vital Signs/Physical Exam: Temp Pulse Resp BP Pulse Ox 98.5 F 89 16 175/72 H 94 06/01/20 08:00 06/01/20 08:00 06/01/20 08:00 06/01/20 08:00 06/01/20 08:00 General: Alert, In no apparent distress HEENT: Mucous membr. moist/pink Neck: JVD not distended Respiratory: Clear to auscultation bilaterally, Normal air movement Cardiovascular: No edema, Regular rate/rhythm, Normal S1 S2 Gastrointestinal: Soft and benign, Non-distended Musculoskeletal: No swelling Integumentary: No rashes Neurological: Other (No focal motor deficit.) Laboratory Data at Discharge: WBC 15.00 K/uL (4.3-10.9) H 06/01/20 06:35 Hgb 9.2 g/dL (12.0-15.0) L 06/01/20 06:35 Hct 29.4 % (36.0-45.0) L 06/01/20 06:35 Plt Count 247 K/uL (152-406) 06/01/20 06:35 PT 12.8 SECONDS (9.5-12.5) H 05/29/20 15:50 INR 1.11 05/29/20 15:50 Sodium 140 mmol/L (136-145) 06/01/20 06:35 Potassium 3.5 mmol/L (3.5-5.1) 06/01/20 06:35 BUN 11 mg/dL (7-18) 06/01/20 06:35 Creatinine 0.66 mg/dL (0.55-1.3) 06/01/20 06:35 Glucose 125 mg/dL (74-106) H 06/01/20 06:35 Magnesium 2.1 mg/dL (1.8-2.4) D 06/01/20 06:35 Total Bilirubin 0.3 mg/dL (0.2-1.0) 06/01/20 06:35 AST 15 U/L (15-37) 06/01/20 06:35 ALT 18 U/L (12-78) 06/01/20 06:35 Alkaline Phosphatase 89 U/L (45-117) 06/01/20 06:35 Triglycerides 467 mg/dL (<150) H 05/29/20 15:50 Cholesterol 133 mg/dL (<200) 05/29/20 15:50 LDL Cholesterol Direct 45 mg/dL (100-129) L 05/29/20 15:50 HDL Cholesterol 20 mg/dL (40-60) L 05/29/20 15:50 Cholesterol/HDL Ratio 6.65 05/29/20 15:50 Lipase 77 U/L (73-393) 06/01/20 06:35 Home Medications: Allopurinol 1 tab PO DAILY 06/13/17 Candesartan Cilexetil 32 mg PO DAILY 06/13/17 Zolpidem Tartrate [Ambien] 1 tab PO BEDTIME 06/13/17 Atorvastatin Calcium [Lipitor*] 10 mg PO BEDTIME #30 tab 06/18/17 Famotidine [Pepcid*] 20 mg PO BID #60 tab 06/18/17 Ferrous Sulfate [Feosol] 325 mg PO TID #90 tablet 06/18/17 Magnesium Oxide [Mag 0X*] 400 mg PO BID #60 tab 06/18/17 carvediloL [Coreg*] 6.25 mg PO BID #60 tab 06/18/17 Alcohol Antiseptic Pads [Alcohol Prep Pads] 1 each TP TID #100 med..pad 06/01/20 Blood Sugar Diagnostic [Glucose Test Strip] 1 each MC TID #100 strip 06/01/20 Blood-Glucose Meter [Contour] 1 each MC TID #1 kit 06/01/20 Ciprofloxacin HCl [Cipro 500 MG Tablet] 500 mg PO BID #28 tab 06/01/20 Insulin Glargine,Hum.rec.anlog [Lantus Solostar] 20 unit SQ BEDTIME #1 kit 06/01/20 Lancets/Blood Glucose Strips [Energreenjji Lancet 30G-Gluc Tst Strp] 1 each MC TID #100 combo..pkg 06/01/20 Melatonin 10 mg PO BEDTIME PRN PRN #30 tablet 06/01/20 New Medications: Alcohol Antiseptic Pads [Alcohol Prep Pads] 1 each TP TID #100 med..pad Ciprofloxacin HCl [Cipro 500 MG Tablet] 500 mg PO BID #28 tab Blood-Glucose Meter [Contour] 1 each MC TID #1 kit Blood Sugar Diagnostic [Glucose Test Strip] 1 each MC TID #100 strip Lancets/Blood Glucose Strips [Energreenjji Lancet 30G-Gluc Tst Strp] 1 each MC TID #100 combo..pkg Insulin Glargine,Hum.rec.anlog [Lantus Solostar] 20 unit SQ BEDTIME #1 kit Melatonin 10 mg PO BEDTIME PRN PRN #30 tablet PRN Reason: Insomnia Diet: ADA Activity: Ad june Followup: Luis Sofia MD [Primary Care Provider] - 1-2 Weeks Time spent managing pt's care (in minutes): 40
--- NOTE | 2020-06-01 12:05 | RAD REPORT ---
EXAM DESCRIPTION: Katharine Single View06/01/2020 11:45 am CLINICAL HISTORY: Cough COMPARISON: May 29, 2020 FINDINGS: Mild bilateral pulmonary opacities with small pleural effusions. Heart is mildly enlarged IMPRESSION: Mild bilateral pulmonary opacities probably pulmonary edema
--- NOTE | 2020-06-01 15:14 | P.PN ---
Subjective Date of Service: 06/01/20 Chief Complaint: Pyelonephritis Patient seen examined at 7:00 a.m. he complains. I have blood cell count continues to drowned trend. Patient's renal function continues to improve. Recommend Cipro p.o. for 2 weeks upon discharge. Review of Systems 10-point ROS is otherwise unremarkable Physical Examination - Vital Signs Temperature: 97.9 F Blood Pressure: 135/61 Pulse: 96 Respirations: 16 Pulse Ox (%): 97 - Physical Exam Other Physical/Emotional Findings: General: Alert, In no apparent distress. HEENT: Atraumatic, Normocephalic. Neck: Supple, 2+ carotid pulse no bruit, JVD not distended. Respiratory: Clear to auscultation bilaterally, Normal air movement. Cardiovascular: No edema, Regular rate/rhythm. Capillary refill: <2 Seconds. Gastrointestinal: Normal bowel sounds, Hypoactive, Soft and benign. Integumentary: No rashes, No breakdown, No significant lesion. Neurological: Normal speech - Studies Laboratory Last Values WBC 36.00 K/uL (4.3-10.9) H* 05/29/20 15:50 RBC 3.21 M/uL (3.86-4.86) L 05/29/20 15:50 Hgb 9.2 g/dL (12.0-15.0) L 05/29/20 15:50 Hct 29.5 % (36.0-45.0) L 05/29/20 15:50 MCV 91.9 fL (80-100) 05/29/20 15:50 MCH 28.5 pg (27.0-35.0) D 05/29/20 15:50 MCHC 31.0 g/dL (32.0-36.0) L 05/29/20 15:50 RDW 16.3 % (12.1-15.2) H 05/29/20 15:50 Plt Count 364 K/uL (152-406) 05/29/20 15:50 MPV 9.5 fL (7.6-11.3) 05/29/20 15:50 Neutrophils % 90.0 % (41.7-73.7) H 05/29/20 15:50 Lymphocytes % 2.4 % (15.3-44.8) L 05/29/20 15:50 Monocytes % 7.3 % (3.3-12.3) 05/29/20 15:50 Eosinophils % 0.1 % (0-4.4) 05/29/20 15:50 Basophils % 0.2 % (0-1.3) 05/29/20 15:50 Absolute Neutrophils 32.4 K/uL (1.8-8.0) H 05/29/20 15:50 Segmented Neutrophils 91 % (40-80) H 05/29/20 15:50 Band Neutrophils 1 % (0-1) 05/29/20 15:50 Absolute Lymphocytes 0.9 K/uL (0.7-4.9) 05/29/20 15:50 Lymphocytes 3 % (15-42) L 05/29/20 15:50 Monocytes 4 % (0-10) 05/29/20 15:50 Absolute Monocytes 2.6 K/uL (0.1-1.3) H 05/29/20 15:50 Absolute Eosinophils 0.0 K/uL (0-0.5) 05/29/20 15:50 Absolute Basophils 0.1 K/uL (0-0.5) 05/29/20 15:50 Platelet Estimate Adeq 05/29/20 15:50 Morphology Comment Not seen (NOT SEEN) 05/29/20 15:50 PT 12.8 SECONDS (9.5-12.5) H 05/29/20 15:50 INR 1.11 05/29/20 15:50 pH 7.41 (7.35-7.45) 05/29/20 17:33 pCO2 33.8 mmHG (35-45) L 05/29/20 17:33 pO2 112.0 mmHG (75-100) H 05/29/20 17:33 HCO3 21.0 mmol/L (22-28) L 05/29/20 17:33 Base Excess -2.8 mmol/L 05/29/20 17:33 Oxyhemoglobin 94.7 % (94-97) 05/29/20 17:33 ABG O2 Sat (Measured) 97.3 % (92-98.5) 05/29/20 17:33 ABG Carboxyhemoglobin 1.4 % (0-1.5) 05/29/20 17:33 ABG Methemoglobin 1.3 % (0-1.5) 05/29/20 17:33 Other Total Hgb 10.1 g/dl (12-18) L 05/29/20 17:33 Inspired O2 21.0 % 05/29/20 17:33 Sodium 130 mmol/L (136-145) L 05/29/20 15:50 Potassium 4.3 mmol/L (3.5-5.1) 05/29/20 15:50 Chloride 93 mmol/L (98-107) L 05/29/20 15:50 Carbon Dioxide 25 mmol/L (21-32) 05/29/20 15:50 BUN 39 mg/dL (7-18) H 05/29/20 15:50 Creatinine 1.56 mg/dL (0.55-1.3) H 05/29/20 15:50 Estimated GFR 32 mL/min (=/>90) L 05/29/20 15:50 Glucose 604 mg/dL (74-106) H* 05/29/20 15:50 Lactic Acid 1.6 mmol/L (0.4-2.0) 05/29/20 19:25 Calcium 8.9 mg/dL (8.5-10.1) 05/29/20 15:50 Magnesium 2.0 mg/dL (1.8-2.4) 05/29/20 15:50 Total Bilirubin 0.5 mg/dL (0.2-1.0) 05/29/20 15:50 Direct Bilirubin 0.2 mg/dL (0-0.2) 05/29/20 15:50 AST 13 U/L (15-37) L 05/29/20 15:50 ALT 25 U/L (12-78) 05/29/20 15:50 Alkaline Phosphatase 154 U/L (45-117) H 05/29/20 15:50 Rapid Troponin I < 0.02 ng/mL (0.0-0.045) 05/29/20 15:50 C-Reactive Protein 134.00 mg/L (<3.00) H 05/29/20 15:50 NT-Pro-B Natriuret Pep 837 pg/mL (<450) H 05/29/20 15:50 Serum Total Protein 6.6 g/dL (6.4-8.2) 05/29/20 15:50 Albumin 2.8 g/dL (3.4-5.0) L 05/29/20 15:50 Globulin 3.8 g/dL (2.3-3.5) H 05/29/20 15:50 Albumin/Globulin Ratio 0.7 (1.1-1.8) L 05/29/20 15:50 Triglycerides 467 mg/dL (<150) H 05/29/20 15:50 Cholesterol 133 mg/dL (<200) 05/29/20 15:50 LDL Cholesterol Direct 45 mg/dL (100-129) L 05/29/20 15:50 LDL Cholesterol, Calc SKY CAP 05/29/20 15:50 HDL Cholesterol 20 mg/dL (40-60) L 05/29/20 15:50 Cholesterol/HDL Ratio 6.65 05/29/20 15:50 Lipase 2367 U/L (73-393) H 05/29/20 15:50 Procalcitonin 7.25 ng/mL (<0.050) H 05/29/20 15:50 Urine pH 5.5 (5.0-7.0) 05/29/20 18:20 Ur Specific Bittinger 1.010 (1.005-1.030) 05/29/20 18:20 Glucose (UA)(Auto) 2+ (NEG) H 05/29/20 18:20 Urine Ketones Trace (NEG) 05/29/20 18:20 Urine Blood 2+ (NEG) H 05/29/20 18:20 Urine Nitrite Positive (NEG) H 05/29/20 18:20 Ur Leukocyte Esterase Trace (NEG) H 05/29/20 18:20 Urine Total Protein Negative (NEG) 05/29/20 18:20 SARS-CoV-2 RNA (RT-PCR) Negative (NEGATIVE) 05/29/20 16:56 ABO/Rh B POSITIVE 05/29/20 15:50 Solid Phase Ab Screen Negative 05/29/20 15:50 Microbiology Data (last 24 hrs): 05/29/20 18:16 Clean Catch Urine Robinson Count - Final BETWEEN 10,000 & 100,000 CFU/ML 05/29/20 18:16 Clean Catch Urine - Final Klebsiella Pneumoniae Enterococcus Faecalis 05/29/20 16:10 Blood - Blood Aerobic Blood Culture - Final Klebsiella Pneumoniae 05/29/20 16:10 Blood - Blood Blood Culture Gram Stain - Final 05/29/20 16:10 Blood - Blood Anaerobic Blood Culture - Final Klebsiella Pneumoniae 05/29/20 16:10 Blood - Blood Gram Stain - Final 05/29/20 15:50 Blood - Blood Aerobic Blood Culture - Final Klebsiella Pneumoniae 05/29/20 15:50 Blood - Blood Blood Culture Gram Stain - Final 05/29/20 15:50 Blood - Blood Anaerobic Blood Culture - Final Klebsiella Pneumoniae 05/29/20 15:50 Blood - Blood Gram Stain - Final Assessment And Plan - Plan Assessment: -severe sepsis due to pyelonephritis -leukocytosis -undiagnosed diabetes type 2 -LEELA Plan: -Continue IV cefepime. Awaiting blood cultures. Continue a antibiotic therapy for 2 weeks after negative blood culture results. Can DC patient on cipro. -renal function improving -Medical management per primary team -continue monitor CBC and BMP -continuing to monitor for signs of infection Plan of care discussed with Dr. Vivas.
[2020-06-01 17:06] VITALS: BP 145/65; TEMP 97.8
[2020-06-01] MEDS ORDERED: FUROSEMIDE 40 MG TABLET PO ONE (17:23)
[2020-06-01] MEDS: INSULIN GLARGINE 100 UNITS/ML SQ SCH (17:54)
== END 2020-06-01 18:23 | disposition home or self-care (01) | DRG 871 ==
LOC: ER 14:08 → ERHOLD 20:04 → 2ND 20:31
PROVIDERS: ADMIT Emergency Medicine; ATTEND Internal Medicine
DX: A41.81 Sepsis due to Enterococcus (principal); G93.41 Metabolic encephalopathy; N12 Tubulo-interstitial nephritis, not specified as acute or chronic; N17.9 Acute kidney failure, unspecified; R65.20 Severe sepsis without septic shock; E78.5 Hyperlipidemia, unspecified; E11.65 Type 2 diabetes mellitus with hyperglycemia; I10 Essential (primary) hypertension; B96.1 Klebsiella pneumoniae [K. pneumoniae] as the cause of diseases classified elsewhere; Z90.49 Acquired absence of other specified parts of digestive tract; Z90.710 Acquired absence of both cervix and uterus; Z79.899 Other long term (current) drug therapy; Z79.4 Long term (current) use of insulin; Z20.822 Contact with and (suspected) exposure to COVID-19
CPT/HCPCS: 36415; 70450; 71045; 71250; 74176; 76705; 80048; 80053; 80061; 80076; 80202; 81003; 81015; 82728; 82805; 82947; 83036; 83540; 83605; 83690; 83735; 83880; 84145; 84439; 84443; 84466; 84484; 85025; 85610; 86140; 86850; 86900; 86901; 87040; 87077; 87086; 87088; 87186; 87205; 93005; 96365; 96366; 96368; 96375; 99284; J0692; J0696; J1650; J1720; J1815; J3370; J3411; J3475; J7030; J7040; J7050; U0003